=== PATIENT | female | born 1970 | race Caucasian/White ===

== ENCOUNTER → 2017-02-10 | Outpatient (CLI) | payer BC ==
[~2017-02-10] MED LIST: ACET-1311 PO; CALC-51 PO; CHOL20009 PO; DIPH-437 PO; IBUP-103 PO; IBUP-1050 PO; LISI10TA PO; METR0.7527 TOP; METR1GEL3; MULT-513 PO; OMEG10007 PO; PRENTAB26 PO
== END | disposition home or self-care (01) ==
LOC: C.PAPS 14:41
PROVIDERS: ATTEND Physician Assistant
DX: Z01.419 Encounter for gynecological examination (general) (routine) without abnormal findings (principal)

== ENCOUNTER 2017-07-30 15:59 | Emergency (ER) | payer BC ==
[~2017-07-30] VITALS: Ht 160 cm; Wt 122.7 kg
[~2017-07-30 15:59] MED LIST changes: -CALC-51 PO; -CHOL20009 PO; -DIPH-437 PO; -IBUP-103 PO; -LISI10TA PO; -METR0.7527 TOP; -MULT-513 PO
[2017-07-30 16:02] VITALS: TEMP 37.4; Ht 160 cm; Wt 122.7 kg
[2017-07-30] MEDS ORDERED: SODIUM CHLORIDE 0.9% 500ML 500 ML IV STA (16:49)
--- NOTE | 2017-07-30 17:03 | DIAGNOSTIC IMAGING REPORT ---
CHEST ONE VIEW PORTABLE CLINICAL HISTORY: Atypical chest pain. Hypertension. COMPARISON STUDY: No previous studies for comparison. FINDINGS: The heart is at the upper limits of normal in size. There is no failure. There is no focal pulmonary consolidation. There are no pleural effusions.[ IMPRESSION: No active disease in the chest. Electronically signed by: Bk Garcia M.D. 07/30/2017 5:02 PM Dictated Date/Time: 07/30/2017 5:02 PM
[2017-07-30] MEDS ORDERED: DIPH-437 PO (17:14)
[2017-07-30] MEDS ORDERED: CHOL20009 PO (17:17)
[2017-07-30] MEDS ORDERED: IBUP-103 PO (17:17)
[2017-07-30] MEDS ORDERED: CALC-51 PO (17:17)
[2017-07-30] MEDS ORDERED: METR0.7527 TOP (17:17)
[2017-07-30] MEDS ORDERED: MULT-513 PO (17:17)
[2017-07-30 17:36] LABS: BASO % 0.4 %; BASO ABS # 0.04 K/uL (0-0.2); COMPLETE YES; EOS % 1.9 %; HEMATOCRIT 39.1 % (37-47); IG% 0.3 %; LYMPH % 19.7 %; LYMPH ABS # 1.93 K/uL (1.2-3.4); MEAN CELL VOLUME 79.8 fL (80-100); MEAN CORPUSCULAR HEMOGLOBIN 26.3 pg (25-34); MEAN PLATELET VOLUME 10.8 fL (7.4-10.4); MONO % 6.6 %; NEUT % 71.1 %; PLATELET COUNT 267 K/uL (130-400)
[2017-07-30 17:56] LABS: BLOOD UREA NITROGEN 15 mg/dl (7-18); BUN/CREATININE RATIO 20.1 (10-20); CALCIUM 9.1 mg/dl (8.5-10.1); CARBON DIOXIDE 24 mmol/L (21-32); CHLORIDE 106 mmol/L (98-107); CREATININE 0.76 mg/dl (0.60-1.20); GLUCOSE 162 mg/dl (70-99); POTASSIUM 3.9 mmol/L (3.5-5.1); SODIUM 138 mmol/L (136-145)
[2017-07-30 18:49] LABS: URINE APPEARANCE CLEAR (CLEAR); URINE BILIRUBIN NEG (NEG); URINE COLOR YELLOW; URINE EPITHELIAL CELL AUTO >30 /lpf (0-5); URINE NITRITE NEG (NEG); UROBILINOGEN NEG (NEG)
[2017-07-30 18:50] LABS: MANUAL MICROSCOPIC REQUIRED? NO; REVIEW REQ? NO
[2017-07-30] MEDS ORDERED: LISINOPRIL 20 MG TAB PO SCH (20:45)
[2017-07-30 22:59] VITALS: BP 211/108; PULSE 73; O2SAT 98
[2017-07-30] MEDS ORDERED: LISI10TA PO ×2 (23:01→23:14)
--- NOTE | 2017-07-30 23:21 | EMERGENCY ROOM VISIT NOTE ---
History Report prepared by Sergio: Cris Ivy Under the Supervision of: Dr. Chuckie Carias D.O. First contact with patient: 16:39 Chief Complaint: HYPERTENSION Stated Complaint: 2 DAYS AGO AFTER ORAL SURGERY, BP WAS 204/114 History of Present Illness The patient is a 47 year old female who presents to the Emergency Room with complaints of constant hypertension beginning ORDER ADMINISTRATOR. The patient had a consult with her oral surgeon 2 days ago and they checked her blood pressure in the office. Her BP was 204/114 at that time. They advised her to call her PCP to follow-up. The patient called her PCP today and was told to come to the ED for further evaluation. She is not currently on any medications for her blood pressure. She has been experiencing some tightness in her throat when she swallows while eating very quickly. If she is not eating or drinking she does not get this. Also if she does not eat and drink at a quick rate she does not get this. Pt denies headache, change in vision, fevers, chest pain, shortness of breath, nausea, vomiting, diarrhea, pain with urination, and melena. No weakness or numbness in arms or legs. Denies any history of high blood pressure , high cholesterol or previous heart disease. Source of History: patient Onset: ORDER ADMINISTRATOR Position: other (global) Symptom Intensity: BP 204/114 Quality: other (hypertension) Timing: constant Associated Symptoms: No fevers, No headache, No chest pain, No SOB, No nausea, No vomiting, No melena, No diarrhea, No urinary symptoms Review of Systems See HPI for pertinent positives & negatives. A total of 10 systems reviewed and were otherwise negative. Past Medical & Surgical Medical Problems: (1) Gestational diabetes (2) UTI (urinary tract infection) Family History Cancer Diabetes mellitus FH: cancer FH: gallbladder disease Heart disease Hypertension Seizures Social History Smokeless Tobacco Use: No Alcohol Use: occasionally Drug Use: none Marital Status: Housing Status: lives with family Occupation Status: employed Current/Historical Medications Scheduled Calcium Carbonate-Vitamin D (Calcium), 1 TAB PO DAILY Cholecalciferol (Vitamin D), 2,000 UNITS PO DAILY Lisinopril (Prinivil), 20 MG PO DAILY Lisinopril (Prinivil), 20 MG PO DAILY Metronidazole (Topical) (Metrogel), 1 APPLN TOP PRN UD Multivitamins/Minerals (Mvi With Minerals), 1 TAB PO DAILY Scheduled PRN Acetaminophen/Diphenhydramine (Tylenol Pm), 2 TAB PO HS PRN for Sleep Ibuprofen Tab (Advil), 600-800 MG PO Q6H PRN for Headache or Pain Allergies Coded Allergies: Tuberculin Purified Protein Derivat (Verified Allergy, Unknown, 11/09/09) Tetanus Immune Globulin (Verified Adverse Reaction, Intermediate, RED, SORE AND HARD AT SITE PER PT, 11/09/09) Physical Exam Vital Signs Date Time Temp Pulse Resp B/P (MAP) Pulse Ox O2 Delivery O2 Flow Rate FiO2 07/30/17 22:59 73 18 211/108 98 Room Air 07/30/17 21:20 75 18 194/112 98 07/30/17 19:06 190/100 07/30/17 18:36 200/111 07/30/17 18:15 214/104 07/30/17 17:51 72 19 228/117 98 Room Air 07/30/17 16:02 37.4 91 17 204/126 98 Room Air Physical Exam GENERAL: Sitting up in bed, disheveled, alert, well appearing, well nourished, no distress, non-toxic EYE EXAM: normal conjunctiva. PERRLA OROPHARYNX: no exudate, no erythema, lips, buccal mucosa, and tongue normal and mucous membranes are moist NECK: supple, no nuchal rigidity, no adenopathy, non-tender LUNGS: Clear to auscultation. Normal chest wall mechanics HEART: no murmurs, S1 normal and S2 normal ABDOMEN: abdomen soft, non-tender, normo-active bowel sounds, no masses, no rebound or guarding. BACK: Back is symmetrical on inspection and there is no deformity, no midline tenderness, no CVA tenderness. SKIN: no rashes and no bruising UPPER EXTREMITIES: upper extremities are grossly normal. LOWER EXTREMITIES: No pitting edema. NEURO EXAM: Normal sensorium, cranial nerves II-XII intact, normal speech, no weakness of arms, no weakness of legs. Medical Decision & Procedures ER Provider Diagnostic Interpretation: Radiology results as stated below per my review and the radiologist's interpretation: CHEST ONE VIEW PORTABLE CLINICAL HISTORY: Atypical chest pain. Hypertension. COMPARISON STUDY: No previous studies for comparison. FINDINGS: The heart is at the upper limits of normal in size. There is no failure. There is no focal pulmonary consolidation. There are no pleural effusions.[ IMPRESSION: No active disease in the chest. Electronically signed by: Bk Garcia M.D. 07/30/2017 5:02 PM Dictated Date/Time: 07/30/2017 5:02 PM Laboratory Results 07/30/17 17:20 Red Blood Count 4.90, Mean Corpuscular Volume 79.8, Mean Corpuscular Hemoglobin 26.3, Mean Corpuscular Hemoglobin Concent 33.0, Mean Platelet Volume 10.8, Neutrophils (%) (Auto) 71.1, Lymphocytes (%) (Auto) 19.7, Monocytes (%) (Auto) 6.6, Eosinophils (%) (Auto) 1.9, Basophils (%) (Auto) 0.4, Neutrophils # (Auto) 6.96, Lymphocytes # (Auto) 1.93, Monocytes # (Auto) 0.65, Eosinophils # (Auto) 0.19, Basophils # (Auto) 0.04 07/30/17 17:20 Test 07/30/17 17:20 07/30/17 18:40 07/30/17 20:56 White Blood Count 9.80 K/uL (4.8-10.8) Red Blood Count 4.90 M/uL (4.2-5.4) Hemoglobin 12.9 g/dL (12.0-16.0) Hematocrit 39.1 % (37-47) Mean Corpuscular Volume 79.8 fL (80-100) Mean Corpuscular Hemoglobin 26.3 pg (25-34) Mean Corpuscular Hemoglobin Concent 33.0 g/dl (32-36) Platelet Count 267 K/uL (130-400) Mean Platelet Volume 10.8 fL (7.4-10.4) Neutrophils (%) (Auto) 71.1 % Lymphocytes (%) (Auto) 19.7 % Monocytes (%) (Auto) 6.6 % Eosinophils (%) (Auto) 1.9 % Basophils (%) (Auto) 0.4 % Neutrophils # (Auto) 6.96 K/uL (1.4-6.5) Lymphocytes # (Auto) 1.93 K/uL (1.2-3.4) Monocytes # (Auto) 0.65 K/uL (0.11-0.59) Eosinophils # (Auto) 0.19 K/uL (0-0.5) Basophils # (Auto) 0.04 K/uL (0-0.2) RDW Standard Deviation 41.9 fL (36.4-46.3) RDW Coefficient of Variation 14.5 % (11.5-14.5) Immature Granulocyte % (Auto) 0.3 % Immature Granulocyte # (Auto) 0.03 K/uL (0.00-0.02) Anion Gap 8.0 mmol/L (3-11) Est Creatinine Clear Calc Drug Dose 113.8 ml/min Estimated GFR () 106.8 Estimated GFR (Non- 92.1 BUN/Creatinine Ratio 20.1 (10-20) Calcium Level 9.1 mg/dl (8.5-10.1) Urine Color YELLOW Urine Appearance CLEAR (CLEAR) Urine pH 6.0 (4.5-7.5) Urine Specific [place] 1.020 (1.000-1.030) Urine Protein 1+ (NEG) Urine Glucose (UA) 2+ (NEG) Urine Ketones NEG (NEG) Urine Occult Blood 2+ (NEG) Urine Nitrite NEG (NEG) Urine Bilirubin NEG (NEG) Urine Urobilinogen NEG (NEG) Urine Leukocyte Esterase NEG (NEG) Urine WBC (Auto) 1-5 /hpf (0-5) Urine RBC (Auto) 5-10 /hpf (0-4) Urine Hyaline Casts (Auto) 0 /lpf (0-5) Urine Epithelial Cells (Auto) >30 /lpf (0-5) Urine Bacteria (Auto) 1+ (NEG) Troponin I < 0.015 ng/ml (0-0.045) Laboratory results per my review. Medications Administered Medications (Trade) Dose Ordered Sig/Velma Route Start Time Stop Time Status Last Admin Dose Admin Lisinopril (Zestril Tab) 20 mg NOW PO 07/30/17 20:45 08/29/17 20:44 07/30/17 22:09 20 MG ECG Indication: other (HTN) Rate (beats per minute): 85 Rhythm: normal sinus Findings: Q waves (inferior and septal), left axis deviation Comparison ECG Date: no prior available ED Course ED COURSE: Vital signs were reviewed and showed hypertensive. The patients medical record was reviewed The above diagnostic studies were performed and reviewed. ED treatments and interventions as stated above. 1639: The patient was evaluated in room A2. A complete history and physical examination was performed. 1648: NSS 500 ml @ 999 mls/hr IV 2044: Lisinopril 20 mg PO 2147: I updated the patient and she is doing well. 2301: Upon reevaluation, the patient is resting comfortably. I discussed my findings with the patient and she understands and agrees with the treatment plan. Based on the patients age, coexisting illnesses, exam and lab findings the decision to treat as an outpatient was made. The patient remained stable while under my care. The patient appeared well at the time of discharge. Medical Decision Differential diagnoses includes but is not limited to acute coronary syndrome, myocardial infarction, pericarditis, pulmonary embolus, aortic dissection, pneumonia, pneumothorax, musculoskeletal, shingles, esophageal. Patient is a 47-year-old female who presents to the ER referred in by her primary care doctor for hypertension. Systolic pressures have been in the 200s at home. She has no complaints. He only thing that she can think of is over the past couple days when she eats rapidly she feels to getting stuck in her esophagus feels tight. This only occurs with eating at a rapid pace. Otherwise she has no chest pain or shortness of breath. No weakness or numbness in arms and legs. No headache or change in vision. She is completely symptomatic. Patient is neurologically intact. EKG shows show Q waves. Troponins were negative 2 with an adjacent to the patient. This is hypertensive urgency and she will be treated as an outpatient. I did start her on lisinopril 20 mg follow d/w IM attending. Stressed importance of following up with PCP in one week. Stressed the importance of refraining from any sexual activity as lisinopril is very teratogenic. Systolic blood pressures trended from the 180s to 210. With her being asystematic she was discharged to follow- up with PCP in 1 week. Discussed with Pt concerning signs and symptoms to watch out for. Pt was instructed to follow up with their PCP and discussed with the patient their option to return to the ED at anytime for persistent or worsening symptoms. The appropriate anticipatory guidance and out-patient management, including indications for return to the emergency department, were explained at length to the patient and understood. Medication Reconcilliation Current Medication List: was personally reviewed by me Blood Pressure Screening Patient's blood pressure: Elevated blood pressure Blood pressure disposition: Referred to PCP Impression Primary Impression: Hypertension Scribe Attestation The scribe's documentation has been prepared under my direction and personally reviewed by me in its entirety. I confirm that the note above accurately reflects all work, treatment, procedures, and medical decision making performed by me. Departure Information Dispostion Home / Self-Care Prescriptions Lisinopril (Prinivil) 10 Mg Tab 20 MG PO DAILY, #20 TAB Prov: Chuckie Carias, DO 07/30/17 Lisinopril (Prinivil) 10 Mg Tab 20 MG PO DAILY, #20 TAB Prov: Chuckie Carias, DO 07/30/17 Referrals Sanket Rodgers M.D.([facility]) (PCP) Forms HOME CARE DOCUMENTATION FORM, IMPORTANT VISIT INFORMATION, WORK / SCHOOL INSTRUCTIONS Patient Instructions Hypertension Control, My [facility] Additional Instructions Please follow up with your primary care doctor with in the next 24 hours. Any worsening of your symptoms, please return to the ED immediately. This includes any fevers greater than 100.4, worsening pain, chest pain, shortness breath, persistent nausea, vomiting, unable to eat or drink, or any other concerning signs or symptoms from your standpoint. You were found to have a blood pressure greater than 120 systolic over 90 diastolic. Due to the new Medicare guidelines, we are now recommending that you follow up with your primary care doctor in regards to this elevated blood pressure. Please take lisinopril as prescribed. Please refrain from any sexual intercourse until you follow up with your primary care doctor as this is very teratogenic. You must follow up with one primary care doctor within 1 week. Problem Qualifiers Primary Impression: Hypertension Hypertension type: unspecified Qualified Codes: I10 - Essential (primary) hypertension
== END 2017-07-30 23:15 | disposition home or self-care (01) ==
LOC: C.EDB 16:05 → C.EDA 23:15
DX: I10 Essential (primary) hypertension (principal); Z87.440 Personal history of urinary (tract) infections; Z80.9 Family history of malignant neoplasm, unspecified; Z83.3 Family history of diabetes mellitus; Z82.49 Family history of ischemic heart disease and other diseases of the circulatory system

== ENCOUNTER 2020-05-19 20:42 | Observation (INO) ==
[2020-05-19 21:28] LABS: Basophils # (auto) 0.03 K/uL (0-0.2); Basophils % (auto) 0.2 %; Eosinophils # (auto) 0.25 K/uL (0-0.5); Hematocrit (blood only) 41.1 % (37-47); Immature Granulocytes # (auto) 0.03 K/uL (0.00-0.02); Immature Granulocytes % (auto) 0.2 %; Lymphocytes # (auto) 2.83 K/uL (1.2-3.4); Lymphocytes % (auto) 22.6 %; Mean Corpuscular Hemoglobin 28.9 pg (25-34); Mean Corpuscular Hgb Conc 34.1 g/dL (32-36); Mean Corpuscular Volume 84.9 fL (80-100); Mean Platelet Volume 10.6 fL (7.4-10.4); Monocytes % (auto) 5.6 %; Neutrophils # (auto) 8.68 K/uL (1.4-6.5); Neutrophils % (auto) 69.4 %; Platelet Count 305 K/uL (130-400); RDW Standard Deviation 43.9 fL (36.4-46.3); Red Blood Count 4.84 M/uL (4.2-5.4); White Blood Count 12.52 K/uL (4.8-10.8)
[2020-05-19 21:43] LABS: D Dimer 320 ug/L FEU (0-500); Partial Thromboplastin Ratio 0.9; Partial Thromboplastin Time 24.1 Seconds (21.0-31.0); Prothrombin Time 10.3 Seconds (9.0-12.0)
[2020-05-19] MEDS ORDERED: NITROGLYCERIN SL 0.4 MG/TAB TAB SL STA (21:55)
[2020-05-19 22:15] LABS: Alanine Aminotransferase 34 U/L (12-78); Albumin Level 3.4 gm/dl (3.4-5.0); Blood Urea Nitrogen 17 mg/dl (7-18); Calcium 8.9 mg/dl (8.5-10.1); Carbon Dioxide 22 mmol/L (21-32); Chloride 107 mmol/L (98-107); Creatinine Clr Calc Pharmacy 90.6 ml/min; Est GFR (African American) 88.8; Est GFR (Non-African American) 76.6; Glucose 118 mg/dl (70-99); Lipase 513 U/L (73-393); Potassium 3.6 mmol/L (3.5-5.1); Sodium 141 mmol/L (136-145)
[2020-05-19] MEDS ORDERED: NITROGLYCERIN 2% OINTMENT 30GM TUBE EXT SCH (22:15)
[2020-05-19 22:21] LABS: Albumin Globulin Ratio 0.8 (0.9-2); Alkaline Phosphatase 115 U/L (45-117); Aspartate Aminotransferase 24 U/L (15-37); Bilirubin,Total 0.3 mg/dl (0.2-1); Creatine Kinase 83 U/L (26-192); Creatine Kinase MB < 1.0 ng/ml (0.5-3.6); Globulin 4.4 gm/dl (2.5-4.0); Total Protein 7.8 gm/dl (6.4-8.2); Troponin I < 0.015 ng/ml (0-0.045)
[2020-05-19] MEDS ORDERED: IOVERSOL 100ml IV ONE (22:47)
[2020-05-20 01:11] LABS: Magnesium 1.8 mg/dl (1.8-2.4)
--- NOTE | 2020-05-20 01:25 | History & Physical Report ---
Date of Service May 20, 2020 Assessment & Plan (1) Chest pain: Relieved by nitroglycerin Rule out ACS given risk factors hypertension, stable hyperlipidemia, on statin Rx DM 2 on oral medications, reasonable control as of recent outpatient hemoglobin A1c of 7.07 April 2020 MARTIN (currently CPAP noncompliant due to frequent respiratory tract infections from last year) OBS PCU Aspirin for CAD prevention until ACS ruled out Follow troponin TTE, Cardiology consult RE chest pain relieved by nitro Check lipid profile Basal insulin, ISS BG goal [id number], carb count coverage Patient counseled about importance of compliance with CPAP and need to reconnect with sleep medicine upon discharge. DVT prophylaxis per Lovenox subcu Full code Text document was generated using [employer] voice recognition software. It may contain grammatical or spelling errors. Kindly contact undersigned for clarification of any documentation item in question. History of Present Illness Chief Complaint: Left-sided chest pain Primary Care Provider: Sanket Rodgers MD History obtained from patient and records. Medical history significant for hypertension, hyperlipidemia, DM 2 on oral medications, history of PCOS, MARTIN (currently CPAP noncompliant.) Yesterday afternoon patient was just walking around when she experienced intermittent left-sided chest pressure without radiation or cough or shortness of breath or diaphoresis symptoms. Different from heartburn. No prior episodes. Some stresses at home. Chest discomfort relieved by Nitropaste at the ER. Medical History as above Surgical History : Knee surgeries Family History : Diabetes, heart disease, stroke Personal/Social history : Non-smoker, no EtOH intake, supervisory it specialist Allergies Allergy/AdvReac Type Severity Reaction Status Date / Time tuberculin, purified protein Allergy Unknown Unknown Verified 05/19/20 21:33 deriva acetaminophen [From Vicodin] Allergy Unknown Verified 05/19/20 21:33 hydrocodone [From Vicodin] Allergy Unknown Verified 05/19/20 21:33 tetanus immune globulin AdvReac Intermediate RED, SORE Verified 05/19/20 21:33 AND HARD AT SITE PER PT lisinopril AdvReac Unknown Chest Verified 05/19/20 21:33 tightness and headache Home Medications Home Medications Medication Instructions Recorded Confirmed Type acetaminophen [Tylenol Extra 100 mg PO DIRECTED PRN 11/29/18 05/19/20 History Strength] albuterol sulfate [ProAir HFA] 2 puff INHALATION DIRECTED PRN 11/29/18 05/19/20 History amlodipine 10 mg PO DAILY 11/29/18 05/19/20 History calcium carbonate-vitamin D3 1 tab PO DAILY 11/29/18 05/19/20 History [Calcium 600 + D(3)] chlorthalidone 25 mg PO DAILY 11/29/18 05/19/20 History cholecalciferol (vitamin D3) 2,000 units PO DAILY 11/29/18 05/19/20 History [Vitamin D3] metformin 1,000 mg PO BID 11/29/18 05/19/20 History metoprolol succinate 50 mg PO DAILY 11/29/18 05/19/20 History multivitamin 1 tab PO DAILY 11/29/18 05/19/20 History atorvastatin 40 mg tablet 40 mg PO DAILY 02/21/20 05/19/20 History empagliflozin [Jardiance] 25 mg PO CQWK 05/19/20 05/19/20 History hydroxyzine HCl 25 - 50 mg PO TID PRN 05/19/20 05/19/20 History sertraline [Zoloft] 50 mg PO DAILY 05/19/20 05/19/20 History Past Med/Surg History Medical History (Updated 05/20/20 @ 01:51 by Scotty Hawkins MD) Abnormal uterine bleeding (AUB) Depression Diabetes Gestational diabetes High blood pressure Migraine headache Pelvic pain UTI (urinary tract infection) Surgical History (Updated 02/21/20 @ 12:07 by Brittanie Patel MD, FACOG) History of dilation and curettage S/P ACL repair x2, left, 1992. 1993 S/P left knee arthroscopy S/P wisdom tooth extraction Family History (Updated 02/21/20 @ 12:09 by Brittanie Patel MD, FACOG) Family/Other Colorectal cancer maternal ggm Coronary heart disease Diabetes Hypertension Osteoporosis Mother Coronary heart disease Diabetes Hypertension Osteoporosis Daughter Anxiety Depression Eating disorder Sister Hypertension Depression Anxiety Other Dyslipidemia Pulmonary embolism Denies family history of Ovarian cancer Breast cancer Social History (Updated 02/21/20 @ 12:09 by Brittanie Patel MD, FACOG) Smoking Status: Never smoker Hx Alcohol Use: No Hx Substance Use: No Preferred Language: Belarusian Feels Safe at Home: Yes Review of Systems Review of Systems: As per HPI, all 10 systems reviewed, all other ROS negative Physical Exam Physical Exam: GENERAL: Comfortable, pleasant, obese, no respiratory distress SKIN: Normal color, warm HEENT: [place] palpebral conjunctivae, no ptosis, moist buccal mucosa NECK : Supple, short neck, no tenderness CHEST : CTA, no tenderness HEART : RRR, no obvious murmurs ABDOMEN: Some distention, nontender EXTREMITIES : Chronic bilateral LE swelling, no LE tenderness, no other conspicuous deformities noted NEUROLOGIC : Coherent, no facial asymmetry, no other gross focality Results & Data Results & Data ([facility]) Vital Signs (Past 12 Hours) Vital Signs Temp Pulse Resp BP Pulse Ox 05/20/20 00:30 65 21 96 05/20/20 00:00 75 16 93 05/19/20 23:30 65 13 95 05/19/20 23:00 62 20 94 05/19/20 22:30 79 20 96 05/19/20 21:48 62 17 123/69 98 05/19/20 20:50 36.6 C 67 20 134/79 99 Laboratory Results Laboratory Results WBC 12.52 K/uL (4.8-10.8) H 05/19/20 21:18 RBC 4.84 M/uL (4.2-5.4) 05/19/20 21:18 Hgb 14.0 g/dL (12.0-16.0) 05/19/20 21:18 Hct 41.1 % (37-47) 05/19/20 21:18 MCV 84.9 fL (80-100) 05/19/20 21:18 MCH 28.9 pg (25-34) 05/19/20 21:18 MCHC 34.1 g/dL (32-36) 05/19/20 21:18 RDW Std Deviation 43.9 fL (36.4-46.3) 05/19/20 21:18 RDW Coeff of Ruel 14.0 % (11.5-14.5) 05/19/20 21:18 Plt Count 305 K/uL (130-400) 05/19/20 21:18 MPV 10.6 fL (7.4-10.4) H 05/19/20 21:18 Immature Gran % (Auto) 0.2 % 05/19/20 21:18 Neut % (Auto) 69.4 % 05/19/20 21:18 Lymph % (Auto) 22.6 % 05/19/20 21:18 [place] % (Auto) 5.6 % 05/19/20 21:18 Eos % (Auto) 2.0 % 05/19/20 21:18 Baso % (Auto) 0.2 % 05/19/20 21:18 Neut # (Auto) 8.68 K/uL (1.4-6.5) H 05/19/20 21:18 Lymph # (Auto) 2.83 K/uL (1.2-3.4) 05/19/20 21:18 [place] # (Auto) 0.70 K/uL (0.11-0.59) H 05/19/20 21:18 Eos # (Auto) 0.25 K/uL (0-0.5) 05/19/20 21:18 Baso # (Auto) 0.03 K/uL (0-0.2) 05/19/20 21:18 Immature Gran # (Auto) 0.03 K/uL (0.00-0.02) H 05/19/20 21:18 PT 10.3 Seconds (9.0-12.0) 05/19/20 21:18 INR 1.0 (0.9-1.1) 05/19/20 21:18 APTT 24.1 Seconds (21.0-31.0) 05/19/20:18 PTT Ratio 0.9 05/19/20 21:18 D-Dimer 320 ug/L FEU (0-500) 05/19/20 21:18 Sodium 141 mmol/L (136-145) 05/19/20 21:18 Potassium 3.6 mmol/L (3.5-5.1) 05/19/20 21:18 Chloride 107 mmol/L (98-107) 05/19/20 21:18 Carbon Dioxide 22 mmol/L (21-32) 05/19/20 21:18 Anion Gap 12.0 (3-11) H 05/19/20 21:18 BUN 17 mg/dl (7-18) 05/19/20 21:18 Creatinine 0.87 mg/dl (0.6-1.2) 05/19/20 21:18 Est Cr Clr Drug Dosing 90.6 ml/min 05/19/20 21:18 Est GFR ( Amer) 88.8 05/19/20 21:18 Est GFR (Non-Af Amer) 76.6 05/19/20 21:18 BUN/Creatinine Ratio 19.0 (10-20) 05/19/20 21:18 Glucose 118 mg/dl (70-99) H 05/19/20 21:18 Calcium 8.9 mg/dl (8.5-10.1) 05/19/20 21:18 Magnesium 1.8 mg/dl (1.8-2.4) 05/19/20 21:18 Total Bilirubin 0.3 mg/dl (0.2-1) 05/19/20 21:18 AST 24 U/L (15-37) 05/19/20 21:18 ALT 34 U/L (12-78) 05/19/20 21:18 Alkaline Phosphatase 115 U/L (45-117) 05/19/20 21:18 Total Creatine Kinase 83 U/L (26-192) 05/19/20 21:18 CK-MB (CK-2) < 1.0 ng/ml (0.5-3.6) 05/19/20 21:18 CK/CKMB % Calc TNP 05/19/20 21:18 Troponin I < 0.015 ng/ml (0-0.045) 05/20/20 00:05 Total Protein 7.8 gm/dl (6.4-8.2) 05/19/20 21:18 Albumin 3.4 gm/dl (3.4-5.0) 05/19/20 21:18 Globulin 4.4 gm/dl (2.5-4.0) H 05/19/20 21:18 Albumin/Globulin Ratio 0.8 (0.9-2) L 05/19/20 21:18 Lipase 513 U/L (73-393) H 05/19/20 21:18 Diagnostic Findings Chest x-ray as per my interpretation elevated right hemidiaphragm, no infiltrate CT abdomen pelvis initial read fluid with nondistended loops of small bowel possible enteritis. No appendicitis. EKG as per my interpretation : Rate 60, NSR, normal axis, no ischemia
[2020-05-20] MEDS ORDERED: ASPIRIN CHEW 324 MG ONE (01:28)
[2020-05-20] MEDS ORDERED: ASPIRIN CHEW 324 MG PO STA (01:28)
[2020-05-20] MEDS ORDERED: PROMETHAZINE HCL 12.5 MG in SODIUM CHLORIDE 0.9% 50 ML IV PRN (02:04)
[2020-05-20] MEDS ORDERED: TRAMADOL HCL 50 MG TABLET PO PRN (02:04)
[2020-05-20] MEDS ORDERED: LORazepam 0.5 MG/1 ML VIAL IV PRN (02:04)
[2020-05-20] MEDS ORDERED: MoRPHine SULFATE 4 MG/ML 1 ML CARP\\VIAL IV PRN (02:04)
[2020-05-20] MEDS ORDERED: DEXTROSE 50% 50 ML SYRINGE IV PRN (02:04)
[2020-05-20] MEDS ORDERED: CARBOHYDRATES FOR HYPOGLYCEMIA PO PRN (02:04)
[2020-05-20] MEDS ORDERED: GLUCOSE 10 TABS/TUBE PO PRN (02:04)
[2020-05-20] MEDS ORDERED: LACTATED RINGER'S 1,000 ML IV ONE (02:04)
[2020-05-20] MEDS ORDERED: GLUCAGON FOR INJ 1 MG VIAL SQ PRN (02:04)
[2020-05-20] MEDS ORDERED: NITROGLYCERIN SL 0.4 MG/TAB TAB SL PRN (02:04)
[2020-05-20] MEDS ORDERED: GLUCOSE 40% GEL 15 GM TUBE PO PRN (02:04)
[2020-05-20] MEDS ORDERED: ACETAMINOPHEN 325 MG TAB PO PRN (02:04)
[2020-05-20] MEDS: INSULIN ASPART 100 UNITS/ML 3 ML PEN SC SCH ×3 (02:44→12:27)
[2020-05-20] MEDS ORDERED: AMLODIPINE BESYLATE 5 MG TAB PO SCH ×2 (03:35→09:00)
[2020-05-20 06:36] LABS: Basophils # (auto) 0.04 K/uL (0-0.2); Basophils % (auto) 0.4 %; Eosinophils # (auto) 0.28 K/uL (0-0.5); Eosinophils % (auto) 2.7 %; Hematocrit (blood only) 38.5 % (37-47); Hemoglobin 12.5 g/dL (12.0-16.0); Immature Granulocytes # (auto) 0.02 K/uL (0.00-0.02); Immature Granulocytes % (auto) 0.2 %; Lymphocytes # (auto) 2.78 K/uL (1.2-3.4); Lymphocytes % (auto) 26.5 %; Mean Corpuscular Hemoglobin 27.5 pg (25-34); Mean Corpuscular Hgb Conc 32.5 g/dL (32-36); Mean Corpuscular Volume 84.6 fL (80-100); Mean Platelet Volume 10.4 fL (7.4-10.4); Monocytes # (auto) 0.61 K/uL (0.11-0.59); Monocytes % (auto) 5.8 %; Neutrophils # (auto) 6.78 K/uL (1.4-6.5); Neutrophils % (auto) 64.4 %; Platelet Count 280 K/uL (130-400); RDW Coefficient of Variation 14.1 % (11.5-14.5); Red Blood Count 4.55 M/uL (4.2-5.4); White Blood Count 10.51 K/uL (4.8-10.8)
[2020-05-20 06:44] LABS: Partial Thromboplastin Ratio 0.9; Partial Thromboplastin Time 24.2 Seconds (21.0-31.0)
[2020-05-20 07:08] LABS: BUN Creatinine Ratio 20.7 (10-20); Blood Urea Nitrogen 14 mg/dl (7-18); Calcium 8.6 mg/dl (8.5-10.1); Carbon Dioxide 25 mmol/L (21-32); Chloride 109 mmol/L (98-107); Creatinine Clr Calc Pharmacy 121.1 ml/min; Est GFR (African American) 117.1; Est GFR (Non-African American) 101.1; Glucose 99 mg/dl (70-99); Lipase 330 U/L (73-393); Potassium 3.6 mmol/L (3.5-5.1); Sodium 141 mmol/L (136-145)
[2020-05-20 07:13] LABS: Chol HDL Ratio 3; Cholesterol 109 mg/dl (0-200); HDL Cholesterol 43 mg/dl; LDL Cholesterol Calculated 40 mg/dl; Triglycerides 130 mg/dl (0-150); Troponin I < 0.015 ng/ml (0-0.045); VLDL Cholesterol 26 mg/dl
--- NOTE | 2020-05-20 07:47 | CT Scan Report ---
CT abd pelvis IV con only CLINICAL HISTORY: Epigastric pain. Elevated lipase COMPARISON STUDY: None. TECHNIQUE: Patient was scanned in a dynamic helical fashion during intravenous administration of 94 c c of Optiray 320 A dose lowering technique was utilized adhering to the principles of ALARA. CT DOSE: 1544.99 mGy.cm FINDINGS: Lower chest: The heart is normal in size and configuration, without pericardial effusion. The lung ba ses and pleural spaces are clear. Liver: The contrast-enhanced liver is normal in size, contour, and attenuation. There is no intrahepa tic biliary ductal dilatation. The hepatic veins and portal veins are patent. Gallbladder: Contracted Spleen: Normal in size and attenuation. Pancreas: Unremarkable. Adrenal glands: Unremarkable. Kidneys: There are bilateral hypodense renal lesions, statistically representing cysts. There is no h ydronephrosis Bowel: There are no transition zones indicate bowel obstruction. There is no evidence of acute divert iculitis. The appendix appears normal. There are scattered colonic air-fluid levels. Peritoneum: There is no intraperitoneal free air or abdominal ascites. Vasculature: The abdominal aorta is normal in course and caliber. Adenopathy: None. Pelvic viscera: The uterus appears bulbous. Adenomyosis cannot be excluded. Skeletal structures: No destructive osseous lesions are seen. IMPRESSION: 1. No evidence of bowel obstruction. No evidence of free air 2. Normal appendix. No evidence of acute diverticulitis 3. Fluid within the stomach and colon. This can be seen in gastroenteritis, but also can be normal. 4. Bulbous uterus 5. No CT evidence of pancreatitis ACT 112: Negative or not required by law. Electronically signed by: Bk Garcia M.D. 05/20/2020 7:46 AM
--- NOTE | 2020-05-20 08:23 | XRay Report ---
XR chest 1V portable CLINICAL HISTORY: Atypical chest pain COMPARISON STUDY: 07/30/2017 FINDINGS: The cardiac and mediastinal contours are normal. There is no evidence of focal pulmonary co nsolidation. There is no evidence of failure. No pleural effusions are visualized.[No pneumothorax is visualized. IMPRESSION: No active disease in the chest. ACT 112: Negative or not required by law. Electronically signed by: Bk Garcia M.D. 05/20/2020 8:22 AM
[2020-05-20] MEDS ORDERED: INSULIN GLARGINE SOLOSTAR 100 UNITS/ML 3 ML PEN SC SCH ×2 (09:00)
[2020-05-20] MEDS ORDERED: METOPROLOL SUCC 25MG EXT REL TAB PO SCH (09:00)
[2020-05-20] MEDS ORDERED: SERTRALINE HCL 50 MG TABLET PO SCH (09:00)
[2020-05-20] MEDS ORDERED: METOPROLOL SUCC 50MG EXT REL TAB PO SCH (09:00)
[2020-05-20] MEDS ORDERED: MULTIVITAMIN TAB PO SCH (09:00)
[2020-05-20] MEDS ORDERED: ENOXAPARIN INJ 40 MG/0.4 ML SYR SQ SCH (09:00)
[2020-05-20] MEDS ORDERED: ATORVASTATIN 40 MG TAB PO SCH (09:00)
--- NOTE | 2020-05-20 10:28 | Cardiology Consultation ---
Date of Consultation May 20, 2020 Assessment & Plan (1) Chest pain: Patient is a 50-year-old female with cardiac vascular risk factors of hypertension, diabetes mellitus and hyperlipidemia on therapy. Patient presents now with symptoms atypical for angina but recurrent over the past 2 days. Cardiac evaluations include negative troponins serially and normal EKGs x3. Echocardiogram demonstrates normal structural heart and no wall motion abnormalities Patient currently comfortable and has had breakfast this morning Would recommend stress echocardiogram to complete evaluation. This may be done as an outpatient patient be continued on aspirin and avoid strenuous activity till study complete History of Present Illness Reason for Consultation: Chest pain Requesting Physician: Dr. Guzman Attending Physician: Sanjeev Guzman MD History of Present Illness Patient is a 50-year-old female with underlying issues which include 1. Hypertension 2. Type 2 diabetes mellitus 3. Hyperlipidemia on appropriate therapy 4. Obstructive sleep apnea Patient presents now noting yesterday having developed a vague mild pressure sensation in the left parasternal region. Symptoms not specifically related to exertion, possibly worse postprandial. No diaphoresis shortness of breath tachypalpitations dizziness or lightheadedness. No fevers chills or cough. No melena medication dysuria hematuria. Appetite and weight have been generally stable per patient. No history rheumatic fever scarlet fever TIA or stroke. No prior history of myocardial infarction angina or congestive heart failure. Brief jab of pain this morning after eating. No problems with ambulation room Symptoms eased on initial presentation in ER after placement of topical nitrates. Allergies Allergy/AdvReac Type Severity Reaction Status Date / Time tuberculin, purified protein Allergy Unknown Unknown Verified 05/19/20 21:33 deriva acetaminophen [From Vicodin] Allergy Unknown Verified 05/19/20 21:33 hydrocodone [From Vicodin] Allergy Unknown Verified 05/19/20 21:33 tetanus immune globulin AdvReac Intermediate RED, SORE Verified 05/19/20 21:33 AND HARD AT SITE PER PT lisinopril AdvReac Unknown Chest Verified 05/19/20 21:33 tightness and headache Home Medications Home Medications Medication Instructions Recorded Confirmed Type acetaminophen [Tylenol Extra 100 mg PO DIRECTED PRN 11/29/18 05/19/20 History Strength] albuterol sulfate [ProAir HFA] 2 puff INHALATION DIRECTED PRN 11/29/18 05/19/20 History amlodipine 10 mg PO DAILY 11/29/18 05/19/20 History calcium carbonate-vitamin D3 1 tab PO DAILY 11/29/18 05/19/20 History [Calcium 600 + D(3)] chlorthalidone 25 mg PO DAILY 11/29/18 05/19/20 History cholecalciferol (vitamin D3) 2,000 units PO DAILY 11/29/18 05/19/20 History [Vitamin D3] metformin 1,000 mg PO BID 11/29/18 05/19/20 History metoprolol succinate 50 mg PO DAILY 11/29/18 05/19/20 History multivitamin 1 tab PO DAILY 11/29/18 05/19/20 History atorvastatin 40 mg tablet 40 mg PO DAILY 02/21/20 05/19/20 History empagliflozin [Jardiance] 25 mg PO CQWK 05/19/20 05/19/20 History hydroxyzine HCl 25 - 50 mg PO TID PRN 05/19/20 05/19/20 History sertraline [Zoloft] 50 mg PO DAILY 05/19/20 05/19/20 History Patient History Medical History Abnormal uterine bleeding (AUB) Depression Diabetes Gestational diabetes High blood pressure Migraine headache Pelvic pain UTI (urinary tract infection) Surgical History History of dilation and curettage S/P ACL repair x2, left, 1992. 1993 S/P left knee arthroscopy S/P wisdom tooth extraction Family History Family/Other Colorectal cancer maternal ggm Coronary heart disease Diabetes Hypertension Osteoporosis Mother Coronary heart disease Diabetes Hypertension Osteoporosis Daughter Anxiety Depression Eating disorder Sister Hypertension Depression Anxiety Other Dyslipidemia Pulmonary embolism Denies family history of Ovarian cancer Breast cancer Social History (Updated 02/21/20 @ 12:09 by Brittanie Patel MD, FACOG) Smoking Status: Never smoker Hx Alcohol Use: No Hx Substance Use: No Preferred Language: Palauan Communication Ability: Effective Beliefs That Will Affect Care: None Current Living Situation: Spouse and Family Other Information That Helps Us Care for You: No Feels Safe at Home: Yes Safety Concerns: Feels Safe At This Time Review of Systems Review of Systems: All systems reviewed & are unremarkable except as noted in HPI & below Physical Exam Constitutional: WD/WN, vitals as above + obese Eyes: PERRL, conjunctivae normal, anicteric sclerae ENMT: external ear and nose normal, oropharynx normal Neck: trachea midline, no thyromegaly Respiratory: normal respiratory effort, lungs clear to auscultation Cardiovascular: Rate/Rhythm: regular rate and regular rhythm Heart Sounds: normal S1 and normal S2; no gallop and no murmur Palpation: normal PMI Vessels: normal carotid upstroke and radial pulses present; no JVD and no carotid bruit Extremities: no edema Chest (Breasts): Additional Comments: No focal tenderness Gastrointestinal (Abdomen): normal bowel sounds, soft, nontender, no hepatosplenomegaly Musculoskeletal: no cyanosis or clubbing, extremities motor strength 5/5 Skin: no rashes, warm and dry Neurologic: PERRL, EOMI, accommodation nl, no face palsy, no dysarthria Psychiatric: A+Ox3, euthymic affect Results & Data ([facility]) Vital Signs (Past 12 Hours) Vital Signs Temp Pulse Pulse Resp BP BP Pulse Ox 05/20/20 09:00 57 L 05/20/20 08:57 05/20/20 08:16 37.1 C 59 L 17 93/60 L 95 05/20/20 04:00 36.9 C 58 L 18 112/70 91 05/20/20 02:05 37.2 C 64 20 144/90 H 98 05/20/20 01:30 78 22 130/65 97 05/20/20 01:00 63 15 113/76 95 05/20/20 00:42 67 15 127/75 98 05/20/20 00:30 65 21 96 05/20/20 00:00 75 16 93 05/19/20 23:30 65 13 95 05/19/20 23:00 62 20 94 05/19/20 22:30 79 20 96 Pulse Ox 05/20/20 09:00 05/20/20 08:57 97 05/20/20 08:16 05/20/20 04:00 05/20/20 02:05 05/20/20 01:30 05/20/20 01:00 05/20/20 00:42 05/20/20 00:30 05/20/20 00:00 05/19/20 23:30 05/19/20 23:00 05/19/20 22:30 Laboratory Results Laboratory Results - last 24 hr 05/19/20 05/19/20 05/19/20 21:18 21:18 21:18 WBC 12.52 H RBC 4.84 Hgb 14.0 Hct 41.1 MCV 84.9 MCH 28.9 MCHC 34.1 RDW Std Deviation 43.9 RDW Coeff of Ruel 14.0 Plt Count 305 MPV 10.6 H Immature Gran % (Auto) 0.2 Neut % (Auto) 69.4 Lymph % (Auto) 22.6 [place] % (Auto) 5.6 Eos % (Auto) 2.0 Baso % (Auto) 0.2 Neut # (Auto) 8.68 H Lymph # (Auto) 2.83 [place] # (Auto) 0.70 H Eos # (Auto) 0.25 Baso # (Auto) 0.03 Immature Gran # (Auto) 0.03 H PT 10.3 INR 1.0 APTT 24.1 PTT Ratio 0.9 D-Dimer 320 Sodium 141 Potassium 3.6 Chloride 107 Carbon Dioxide 22 Anion Gap 12.0 H BUN 17 Creatinine 0.87 Est Cr Clr Drug Dosing 90.6 Est GFR ( Amer) 88.8 Est GFR (Non-Af Amer) 76.6 BUN/Creatinine Ratio 19.0 Glucose 118 H POC Glucose Calcium 8.9 Magnesium 1.8 Total Bilirubin 0.3 AST 24 ALT 34 Alkaline Phosphatase 115 Total Creatine Kinase 83 CK-MB (CK-2) < 1.0 CK/CKMB % Calc TNP Troponin I < 0.015 Total Protein 7.8 Albumin 3.4 Globulin 4.4 H Albumin/Globulin Ratio 0.8 L Triglycerides Cholesterol LDL Cholesterol, Calc VLDL Cholesterol, Calc HDL Cholesterol Cholesterol/HDL Ratio Lipase 513 H 05/20/20 05/20/20 05/20/20 00:05 02:43 05:56 WBC 10.51 RBC 4.55 Hgb 12.5 Hct 38.5 MCV 84.6 MCH 27.5 MCHC 32.5 RDW Std Deviation 44.0 RDW Coeff of Ruel 14.1 Plt Count 280 MPV 10.4 Immature Gran % (Auto) 0.2 Neut % (Auto) 64.4 Lymph % (Auto) 26.5 [place] % (Auto) 5.8 Eos % (Auto) 2.7 Baso % (Auto) 0.4 Neut # (Auto) 6.78 H Lymph # (Auto) 2.78 [place] # (Auto) 0.61 H Eos # (Auto) 0.28 Baso # (Auto) 0.04 Immature Gran # (Auto) 0.02 PT INR APTT PTT Ratio D-Dimer Sodium Potassium Chloride Carbon Dioxide Anion Gap BUN Creatinine Est Cr Clr Drug Dosing Est GFR ( Amer) Est GFR (Non-Af Amer) BUN/Creatinine Ratio Glucose POC Glucose 151 H Calcium Magnesium Total Bilirubin AST ALT Alkaline Phosphatase Total Creatine Kinase CK-MB (CK-2) CK/CKMB % Calc Troponin I < 0.015 Total Protein Albumin Globulin Albumin/Globulin Ratio Triglycerides Cholesterol LDL Cholesterol, Calc VLDL Cholesterol, Calc HDL Cholesterol Cholesterol/HDL Ratio Lipase 05/20/20 05/20/20 05/20/20 05:56 05:56 07:46 WBC RBC Hgb Hct MCV MCH MCHC RDW Std Deviation RDW Coeff of Ruel Plt Count MPV Immature Gran % (Auto) Neut % (Auto) Lymph % (Auto) [place] % (Auto) Eos % (Auto) Baso % (Auto) Neut # (Auto) Lymph # (Auto) [place] # (Auto) Eos # (Auto) Baso # (Auto) Immature Gran # (Auto) PT INR APTT 24.2 PTT Ratio 0.9 D-Dimer Sodium 141 Potassium 3.6 Chloride 109 H Carbon Dioxide 25 Anion Gap 7.0 BUN 14 Creatinine 0.67 Est Cr Clr Drug Dosing 121.1 Est GFR ( Amer) 117.1 Est GFR (Non-Af Amer) 101.1 BUN/Creatinine Ratio 20.7 H Glucose 99 POC Glucose 112 H Calcium 8.6 Magnesium Total Bilirubin AST ALT Alkaline Phosphatase Total Creatine Kinase CK-MB (CK-2) CK/CKMB % Calc Troponin I < 0.015 Total Protein Albumin Globulin Albumin/Globulin Ratio Triglycerides 130 Cholesterol 109 LDL Cholesterol, Calc 40 VLDL Cholesterol, Calc 26 HDL Cholesterol 43 Cholesterol/HDL Ratio 3 Lipase 330 (1) Chest pain Chest pain type: precordial pain Qualified Code(s): R07.2 - Precordial pain
[2020-05-20 11:47] VITALS: PULSE 60; TEMP 98.2; O2SAT 94
--- NOTE | 2020-05-20 13:56 | Hospitalist Progress Note ---
Date of Service May 20, 2020 Assessment & Plan (1) Chest pain: Present on admission with exertional chest pain that relieved by nitroglycerin Troponin x3 negative EKG showed no ischemic changes Cardio on board Echo showed mild concentric left ventricular hypertrophy. Left ventricular systolic function is normal. Left ventricular wall motion is normal with ejection fraction 60 to 65%. case discussed with cardiology plan for outpatient stress echo (cardiology office will call the patient to arrange it) Currently asymptomatic Continue aspirin, metoprolol and statin Ok from cardiology standpoint to discharge home Hypertension BP stable Continue Amlodipine, Chlorthalidone and metoprolol Continue monitor BP Hyperlipidemia Chol 109, LDL 40, HDL 43 and triglycerides 130 Continue statin Diabetes type 2 Most recent Hba1c 7.4 on 04/23 Will resume Metformin and Jardiance on discharge Continue monitor BS MARTIN currently CPAP noncompliant due to frequent respiratory tract infections from last year) DVT PX on Lovenox subq CODE STATUS FULL CODE Admission and Anticipated Discharge Date Admission Date: May 20, 2020 Subjective Pt was seen and examined Lying in bed with no distress Pt said that she feels fine She is not having any pain currently She has been walking in the hallway with no distress Denies any chest pain, palpitation, dizziness and SOB Physical Exam Physical Exam: General- No acute distress Head- atraumatic Eyes- PERRL, EOMI, ENT- oropharynx clear Neck- supple, no JVD Lungs- clear to auscultation Heart- regular rhythm; no murmur Abdomen- normal bowel sounds, soft, nontender Extremities- no calf tenderness Neuro- alert, oriented x 3; PERRL, EOMI; no facial palsy; no dysarthria Skin- warm & dry Results & Data Results & Data ([facility]) Vital Signs (Past 12 Hours) Vital Signs Temp Pulse Pulse Resp BP BP Pulse Ox 05/20/20 11:45 36.8 C 60 18 118/73 94 05/20/20 09:00 57 L 05/20/20 08:57 05/20/20 08:16 37.1 C 59 L 17 93/60 L 95 05/20/20 04:00 36.9 C 58 L 18 112/70 91 05/20/20 02:05 37.2 C 64 20 144/90 H 98 Pulse Ox 05/20/20 11:45 05/20/20 09:00 05/20/20 08:57 97 05/20/20 08:16 05/20/20 04:00 05/20/20 02:05 (1) Chest pain Chest pain type: precordial pain Qualified Code(s): R07.2 - Precordial pain
[2020-05-20 14:10] VITALS: BP 93/60
--- NOTE | 2020-05-20 17:19 | Emergency Department Note ---
History of Present Illness General Chief complaint: Chest Pain Stated complaint: chest pain Time Seen by Provider: 05/19/20 20:54 Source: patient, RN notes reviewed and old records reviewed Mode of arrival: ambulatory Limitations: no limitations History of Present Illness Provider complaint: Chest pain Onset (ago): hour(s) 6 Location: chest Radiation: back Severity: moderate Pain Consistency: + intermittent Maximum Pain Intensity: 5 Current Pain Intensity: 5 Quality: + burning Relieved By: + immobilization Exacerbated By: + movement Associated symptoms: + denies other symptoms; no diaphoresis, no fever/chills, no nausea/vomiting and no shortness of breath Treatments prior to arrival: none This is a 51-year-old female who presents emergency department complaining of chest pain that has been ongoing for the past several hours. The patient reports her pain developed throughout the day today. She does not recall what she was doing when the pain started. The patient reports she is a diabetic. She describes the pain as a pressure sensation that radiates into her back. She reports immobilization makes the pain better however movement makes the pain worse. Home Medications Home Medications Medication Instructions Recorded Confirmed Type acetaminophen [Tylenol Extra 100 mg PO DIRECTED PRN 11/29/18 05/19/20 History Strength] albuterol sulfate 2 puff INHALATION DIRECTED PRN 11/29/18 05/19/20 History amlodipine 10 mg PO DAILY 11/29/18 05/19/20 History calcium carbonate-vitamin D3 1 tab PO DAILY 11/29/18 05/19/20 History [Calcium 600 + D(3)] chlorthalidone 25 mg PO DAILY 11/29/18 05/19/20 History cholecalciferol (vitamin D3) 2,000 units PO DAILY 11/29/18 05/19/20 History [Vitamin D3] metformin 1,000 mg PO BID 11/29/18 05/19/20 History metoprolol succinate 50 mg PO DAILY 11/29/18 05/19/20 History multivitamin 1 tab PO DAILY 11/29/18 05/19/20 History atorvastatin 40 mg tablet 40 mg PO DAILY 02/21/20 05/19/20 History Jardiance 25 mg PO CQWK 05/19/20 05/19/20 History hydroxyzine HCl 25 - 50 mg PO TID PRN 05/19/20 05/19/20 History sertraline [Zoloft] 50 mg PO DAILY 05/19/20 05/19/20 History aspirin 81 mg PO QAM 30 Days #30 tab 05/20/20 Rx Allergies Allergy/AdvReac Type Severity Reaction Status Date / Time tuberculin, purified protein Allergy Unknown Unknown Verified 05/19/20 21:33 deriva acetaminophen [From Vicodin] Allergy Unknown Verified 05/19/20 21:33 hydrocodone [From Vicodin] Allergy Unknown Verified 05/19/20 21:33 tetanus immune globulin AdvReac Intermediate RED, SORE Verified 05/19/20 21:33 AND HARD AT SITE PER PT lisinopril AdvReac Unknown Chest Verified 05/19/20 21:33 tightness and headache Past Med/Surg History Medical History Abnormal uterine bleeding (AUB) Depression Diabetes Gestational diabetes High blood pressure Migraine headache Pelvic pain UTI (urinary tract infection) Surgical History History of dilation and curettage S/P ACL repair x2, left, 1993. 1993 S/P left knee arthroscopy S/P wisdom tooth extraction Family History Family/Other Colorectal cancer maternal ggm Coronary heart disease Diabetes Hypertension Osteoporosis Mother Coronary heart disease Diabetes Hypertension Osteoporosis Daughter Anxiety Depression Eating disorder Sister Hypertension Depression Anxiety Other Dyslipidemia Pulmonary embolism Denies family history of Ovarian cancer Breast cancer Social History Smoking Status: Never smoker Hx Alcohol Use: No Hx Substance Use: No Preferred Language: Upper Sorbian Communication Ability: Effective Beliefs That Will Affect Care: None Current Living Situation: Spouse and Family Other Information That Helps Us Care for You: No Feels Safe at Home: Yes Safety Concerns: Feels Safe At This Time Review of Systems A total of 10 systems reviewed and were otherwise negative Physical Exam Vital Signs Vital Signs - 24 hr 05/19/20 20:50 05/19/20 21:05 05/19/20 21:48 Temperature 36.6 C Temperature Source Oral Pulse Rate 67 62 Pulse Rate from SpO2 Sensor 62 Respiratory Rate 20 17 Blood Pressure 134/79 123/69 Blood Pressure Mean 97 83 Blood Pressure Position Sitting Pulse Oximetry 99 98 Oxygen Delivery Method Room Air Room Air Sepsis Recent Fever Within 48 Hours No Sepsis New/Unexplained Change in Mental Status No Sepsis Action Taken by Nursing No Action Required 05/19/20 22:30 05/19/20 23:00 05/19/20 23:30 Temperature Temperature Source Pulse Rate 79 62 65 Pulse Rate from SpO2 Sensor 65 62 65 Respiratory Rate 20 20 13 Blood Pressure Blood Pressure Mean Blood Pressure Position Pulse Oximetry 96 94 95 Oxygen Delivery Method Room Air Room Air Room Air Sepsis Recent Fever Within 48 Hours Sepsis New/Unexplained Change in Mental Status Sepsis Action Taken by Nursing 05/20/20 00:00 05/20/20 00:30 05/20/20 00:42 Temperature Temperature Source Pulse Rate 75 65 67 Pulse Rate from SpO2 Sensor 74 65 64 Respiratory Rate 16 21 15 Blood Pressure 127/75 Blood Pressure Mean 85 Blood Pressure Position Pulse Oximetry 93 96 98 Oxygen Delivery Method Room Air Room Air Room Air Sepsis Recent Fever Within 48 Hours Sepsis New/Unexplained Change in Mental Status Sepsis Action Taken by Nursing 05/20/20 01:00 Temperature Temperature Source Pulse Rate 63 Pulse Rate from SpO2 Sensor 63 Respiratory Rate 15 Blood Pressure 113/76 Blood Pressure Mean 83 Blood Pressure Position Pulse Oximetry 95 Oxygen Delivery Method Room Air Sepsis Recent Fever Within 48 Hours Sepsis New/Unexplained Change in Mental Status Sepsis Action Taken by Nursing VITAL SIGNS - Vital signs and nursing notes were reviewed. GENERAL - 50-year-old female appearing stated age who is in no acute distress. Communicates well with provider and answers questions appropriately. SKIN - Without rashes. HEAD - NC/AT. EYES - PERRL with EOMI bilaterally. Sclera anicteric. Palpebral conjunctiva pink and moist with no injection noted. EARS - No deformities of external structures noted on gross examination bilaterally. No pain elicited with palpation of the tragus bilaterally. External auditory canals without discharge or otorrhea. Tympanic membranes pearly escalante without retraction or bulging. No fluid or purulent material visualized behind the TM. Handle of malleus, umbo, cone of light, pars tensa/flaccid all easily visualized. NOSE - Midline and without cyanosis. No epistaxis or purulent drainage noted. Septum midline without deviation or septal hematoma noted. MOUTH/OROPHARYNX - Without perioral cyanosis. Buccal mucosa pink and moist and without leukoplakia. Tongue midline with equal elevation of palate bilaterally. No tonsillar hypertrophy, erythema, or exudates noted. dentition noted. NECK - Neck with FROM. Supple to palpation. lymphadenopathy noted. No nuchal r igidity. LUNGS - Chest wall symmetric without accessory muscle use, intercostals retractions, or central cyanosis. Normal vesicular breath sounds CTA B/L. No wheezes, rales, or rhonchi appreciated. CARDIAC - RRR with S1/S2. No murmur, rubs, or gallops appreciated. ABDOMEN - Abdominal contour without pulsations or visible masses. BS normoactive all four quadrants. No tenderness, palpable masses, hepatosplenomegaly, or ascites noted. EXTREMITIES - No clubbing or peripheral cyanosis. No pretibial edema present. +3/5 radial, posterior tibial, and dorsalis pedis pulses palpated throughout. +5 /5 strength noted in UE/LE bilaterally. NEUROLOGIC - Cranial nerves II through XII grossly intact. Sensory intact to light touch throughout. Patellar reflexes +2/4. PSYCH - A&Ox3 and cooperates fully with examiner. Pt is very pleasant and interacts well with examiner. Course Administered Medications Discontinued Medications Acetaminophen (Acetaminophen 325 Mg Tab) 650 mg PO Q4H PRN PRN Reason: Pain or Fever Stop: 06/19/20 02:03 Last Admin: 05/20/20 09:18 Dose: 650 mg Documented by: [id number] Amlodipine Besylate (Amlodipine Besylate 5 Mg Tab) 10 mg PO DAILY [facility] Stop: 06/19/20 03:34 Last Admin: 05/20/20 04:45 Dose: 10 mg Documented by: [id number] Aspirin (Aspirin Chew 324 Mg) 324 mg PO NOW STA Stop: 05/20/20 01:29 Last Admin: 05/20/20 01:30 Dose: 324 mg Documented by: [id number] Aspirin (Aspirin Chew 324 Mg) Confirm Administered Dose 324 mg .ROUTE .STK-MED ONE Stop: 05/20/20 01:29 Last Admin: 05/20/20 01:30 Dose: Not Given Documented by: [id number] Aspirin (Aspirin 81 Mg Ectab) [facility] Stop: 06/20/20 08:59 Last Admin: 05/20/20 08:35 Dose: 81 mg Documented by: [id number] Atorvastatin Calcium (Atorvastatin 40 Mg Tab) 40 mg PO DAILY [facility] Stop: 06/19/20 08:59 Last Admin: 05/20/20 08:27 Dose: 40 mg Documented by: [id number] Enoxaparin Sodium (Enoxaparin Inj 40 Mg/0.4 Ml Syr) 40 mg SQ QAM [facility]USSEIN Stop: 06/19/20 08:59 Last Admin: 05/20/20 08:30 Dose: 40 mg Documented by: [id number] Lactated Ringer's (Lr) 1,000 mls @ 75 mls/hr IV .[id number] ONE Stop: 05/20/20 15:23 Last Admin: 05/20/20 02:29 Dose: 75 mls/hr Documented by: [id number] Insulin Aspart (Insulin Aspart 100 Units/Ml 3 Ml Pen) 0 units SC ACHS HUSSEIN Stop: 06/19/20 02:29 Last Admin: 05/20/20 12:27 Dose: 3 units Documented by: [id number] Cosigned by: [id number] Admin: 05/20/20 08:51 Dose: Not Given Documented by: [id number] Cosigned by: [id number] Admin: 05/20/20 02:44 Dose: Not Given Documented by: [id number] Insulin Glargine (Insulin Glargine Solostar 100 Units/Ml 3 Ml Pen) 5 units SC DAILY [facility] Stop: 06/19/20 08:59 Last Admin: 05/20/20 09:00 Dose: 5 units Documented by: [id number] Cosigned by: [id number] Ioversol (Ioversol 100ml) 94 ml IV ONCE ONE Stop: 05/19/20 22:48 Last Admin: 05/19/20 22:47 Dose: 94 ml Documented by: [id number] Metoprolol Succinate (Metoprolol Succ 25mg Ext Rel Tab) 25 mg PO DAILY [facility] Stop: 06/19/20 08:59 Last Admin: 05/20/20 08:28 Dose: 25 mg Documented by: [id number] Multivitamins (Multivitamin Tab) 1 tab PO DAILY [facility] Stop: 06/19/20 08:59 Last Admin: 05/20/20 08:26 Dose: 1 tab Documented by: [id number] Nitroglycerin (Nitroglycerin Sl 0.4 Mg/Tab Tab) 0.4 mg SL NOW STA Stop: 05/19/20 21:56 Last Admin: 05/19/20 22:19 Dose: Not Given Documented by: [id number] Nitroglycerin (Nitroglycerin 2% Ointment 30gm Tube) 1 inch EXT Q6H [facility] Stop: 06/18/20 22:14 Last Admin: 05/19/20 22:10 Dose: 1 inch Documented by: [id number] Nitroglycerin (Nitroglycerin Sl 0.4 Mg/Tab Tab) 0.4 mg SL UD PRN PRN Reason: Chest Pain Stop: 06/19/20 02:03 Last Admin: 05/20/20 08:34 Dose: 0.4 mg Documented by: [id number] Sertraline HCl (Sertraline Hcl 50 Mg Tablet) 50 mg PO DAILY [facility] Stop: 06/19/20 08:59 Last Admin: 05/20/20 08:26 Dose: 50 mg Documented by: [id number] Medical Decision Making Differential Diagnosis Cardiac ischemia, aortic dissection, pulmonary embolism, pneumothorax, pneumonia, pericarditis, myocarditis, esophageal rupture, GERD, cholecystitis, pancreatitis, musculoskeletal, as well as other pathologies. Medical Records Attestation: I reviewed the patient's medical records. Home Medications Current Medication List: was personally reviewed by me Laboratory Data Attestation: I reviewed the patient's lab results. Result diagrams: 05/20/20 05:56 05/20/20 05:56 Lab Results 05/19/20 05/19/20 05/19/20 Range/Units 21:18 21:18 21:18 WBC 12.52 H (4.8-10.8) K/uL RBC 4.84 (4.2-5.4) M/uL Hgb 14.0 (12.0-16.0) g/dL Hct 41.1 (37-47) % MCV 84.9 (80-100) fL MCH 28.9 (25-34) pg MCHC 34.1 (32-36) g/dL RDW Std Deviation 43.9 (36.4-46.3) fL RDW Coeff of Ruel 14.0 (11.5-14.5) % Plt Count 305 (130-400) K/uL MPV 10.6 H (7.4-10.4) fL Immature Gran % (Auto) 0.2 % Neut % (Auto) 69.4 % Lymph % (Auto) 22.6 % [place] % (Auto) 5.6 % Eos % (Auto) 2.0 % Baso % (Auto) 0.2 % Neut # (Auto) 8.68 H (1.4-6.5) K/uL Lymph # (Auto) 2.83 (1.2-3.4) K/uL [place] # (Auto) 0.70 H (0.11-0.59) K/uL Eos # (Auto) 0.25 (0-0.5) K/uL Baso # (Auto) 0.03 (0-0.2) K/uL Immature Gran # (Auto) 0.03 H (0.00-0.02) K/uL PT 10.3 (9.0-12.0) Seconds INR 1.0 (0.9-1.1) APTT 24.1 (21.0-31.0) Seconds PTT Ratio 0.9 D-Dimer 320 (0-500) ug/L FEU Sodium 141 (136-145) mmol/L Potassium 3.6 (3.5-5.1) mmol/L Chloride 107 (98-107) mmol/L Carbon Dioxide 22 (21-32) mmol/L Anion Gap 12.0 H (3-11) BUN 17 (7-18) mg/dl Creatinine 0.87 (0.6-1.2) mg/dl Est Cr Clr Drug Dosing 90.6 ml/min Est GFR ( Amer) 88.8 Est GFR (Non-Af Amer) 76.6 BUN/Creatinine Ratio 19.0 (10-20) Glucose 118 H (70-99) mg/dl Calcium 8.9 (8.5-10.1) mg/dl Magnesium 1.8 (1.8-2.4) mg/dl Total Bilirubin 0.3 (0.2-1) mg/dl AST 24 (15-37) U/L ALT 34 (12-78) U/L Alkaline Phosphatase 115 (45-117) U/L Total Creatine Kinase 83 (26-192) U/L CK-MB (CK-2) < 1.0 (0.5-3.6) ng/ml CK/CKMB % Calc TNP Troponin I < 0.015 (0-0.045) ng/ml Total Protein 7.8 (6.4-8.2) gm/dl Albumin 3.4 (3.4-5.0) gm/dl Globulin 4.4 H (2.5-4.0) gm/dl Albumin/Globulin Ratio 0.8 L (0.9-2) Lipase 513 H (73-393) U/L 05/20/20 Range/Units 00:05 WBC (4.8-10.8) K/uL RBC (4.2-5.4) M/uL Hgb (12.0-16.0) g/dL Hct (37-47) % MCV (80-100) fL MCH (25-34) pg MCHC (32-36) g/dL RDW Std Deviation (36.4-46.3) fL RDW Coeff of Ruel (11.5-14.5) % Plt Count (130-400) K/uL MPV (7.4-10.4) fL Immature Gran % (Auto) % Neut % (Auto) % Lymph % (Auto) % [place] % (Auto) % Eos % (Auto) % Baso % (Auto) % Neut # (Auto) (1.4-6.5) K/uL Lymph # (Auto) (1.2-3.4) K/uL [place] # (Auto) (0.11-0.59) K/uL Eos # (Auto) (0-0.5) K/uL Baso # (Auto) (0-0.2) K/uL Immature Gran # (Auto) (0.00-0.02) K/uL PT (9.0-12.0) Seconds INR (0.9-1.1) APTT (21.0-31.0) Seconds PTT Ratio D-Dimer (0-500) ug/L FEU Sodium (136-145) mmol/L Potassium (3.5-5.1) mmol/L Chloride (98-107) mmol/L Carbon Dioxide (21-32) mmol/L Anion Gap (3-11) BUN (7-18) mg/dl Creatinine (0.6-1.2) mg/dl Est Cr Clr Drug Dosing ml/min Est GFR ( Amer) Est GFR (Non-Af Amer) BUN/Creatinine Ratio (10-20) Glucose (70-99) mg/dl Calcium (8.5-10.1) mg/dl Magnesium (1.8-2.4) mg/dl Total Bilirubin (0.2-1) mg/dl AST (15-37) U/L ALT (12-78) U/L Alkaline Phosphatase (45-117) U/L Total Creatine Kinase (26-192) U/L CK-MB (CK-2) (0.5-3.6) ng/ml CK/CKMB % Calc Troponin I < 0.015 (0-0.045) ng/ml Total Protein (6.4-8.2) gm/dl Albumin (3.4-5.0) gm/dl Globulin (2.5-4.0) gm/dl Albumin/Globulin Ratio (0.9-2) Lipase (73-393) U/L Imaging Data Radiologist's Impression: [facility], [place] [phone] CT Scan Report Patient: HECTOR MAGANA Date: 05/20/20 MR#: [id number]: [address] Acct ID:[id number]: [address] Date: 1970[facility] Zip: [place] [address] Age: 50Location: 2S Sex: F Room/Bed: [facility] Att Phy: Sanjeev Guzman M.D.Diagnosis: chest pain Pily Phy: Sanket Rodgers MD(DAVIN)Service Date: 05/19/20 Fam Phy:Interpreting Phy: Bk Garcia MD Admit Phy: Scotty Hawkins MD Ordering Phy: Pio Ortega MD cc: ~ CT abd pelvis IV con only CLINICAL HISTORY: Epigastric pain. Elevated lipase COMPARISON STUDY: None. TECHNIQUE: Patient was scanned in a dynamic helical fashion during intravenous administration of 94 cc of Optiray 320 A dose lowering technique was utilized adhering to the principles of ALARA. CT DOSE: 1544.99 mGy.cm FINDINGS: Lower chest: The heart is normal in size and configuration, without pericardial effusion. The lung bases and pleural spaces are clear. Liver: The contrast-enhanced liver is normal in size, contour, and attenuation. There is no intrahepatic biliary ductal dilatation. The hepatic veins and portal veins are patent. Gallbladder: Contracted Spleen: Normal in size and attenuation. Pancreas: Unremarkable. Adrenal glands: Unremarkable. Kidneys: There are bilateral hypodense renal lesions, statistically representing cysts. There is no hydronephrosis Bowel: There are no transition zones indicate bowel obstruction. There is no evidence of acute diverticulitis. The appendix appears normal. There are scattered colonic air-fluid levels. Peritoneum: There is no intraperitoneal free air or abdominal ascites. Vasculature: The abdominal aorta is normal in course and caliber. Adenopathy: None. Pelvic viscera: The uterus appears bulbous. Adenomyosis cannot be excluded. Skeletal structures: No destructive osseous lesions are seen. IMPRESSION: 1. No evidence of bowel obstruction. No evidence of free air 2. Normal appendix. No evidence of acute diverticulitis 3. Fluid within the stomach and colon. This can be seen in gastroenteritis, but also can be normal. 4. Bulbous uterus 5. No CT evidence of pancreatitis ACT 112: Negative or not required by law. Electronically signed by: Bk Garcia M.D. 05/20/2020 7:46 AM Dictated: 05/20/20740 Transcribed: 05/20/20740 ECG Data Attestation: I personally reviewed and interpreted this ECG as follows: Indication: chest pain Rate (beats per minute): 62 Rhythm: normal sinus Findings: + other (QTC 412); no ST depression and no ST elevation Comparison ECG Date: from (07/30/2017) Change: no significant change Additional Comments: Repeat EKG of 05/19/2020 shows a normal sinus rhythm normal EKG no ST elevation or depression ventricular rate of 64 QTC is 420 it is unchanged from the previous Third repeat EKG of 05/20/2020 shows a normal sinus rhythm no ST elevation or depression QTC is 431 with a ventricular rate of 63 and is unchanged from the previous MDM Narrative Patient was seen and evaluated as above in room C9. Review was performed of nursing notes and vital signs. I did review pertinent previous visits and patient history. After obtaining a thorough history and physical examination the above work up was performed. This is a 50-year-old female who presents emergency department complaining of chest pain. The patient's lipase is elevated however she denies drinking any alcohol. Her pain was relieved by nitro paste here in the emergency department. Based on this I did discuss the case with the hospitalist service who did agree to admit the patient. An order was placed for continuous cardiac monitoring. The monitor shows a rate of 60 with Normal SInus rhythm. The patient was evaluated during the global COVID- pandemic, and that diagnosis was suspected/considered upon their initial presentation. Their evaluation, treatment and testing was consistent with current guidelines for patients who present with complaints or symptoms that may be related to COVID- 19. Impression & Plan Chest pain Discharge Plan Visit Data Chief Complaint: Chest Pain Stated Complaint: chest pain ED Provider: Pio Ortega Discharge Problem: Chest pain Patient Disposition: Admitted As Inpatient Discharge Instructions Interventions: ED Discharge Assessment Last Done: 05/20/20 01:47 Discharge Problem: Chest pain Qualifiers: Chest pain type: unspecified Qualified Code(s): R07.9 - Chest pain, unspecified
--- NOTE | 2020-05-20 23:04 | Electrocardiogram Report ---
Test Reason : Blood Pressure : / mmHG Vent. Rate : 062 BPM Atrial Rate : 062 BPM P-R Int : 160 ms QRS Dur : 078 ms QT Int : 406 ms P-R-T Axes : 035 013 022 degrees QTc Int : 412 ms Normal sinus rhythm Normal ECG When compared with ECG of 30-JUL-2017 17:13, Nonspecific T wave abnormality no longer evident in Lateral leads Confirmed by Artemio Gomes ([id number]) on 05/20/2020 11:04:26 PM Referred By: REFERRED SELF Confirmed By:Artemio Gomes
--- NOTE | 2020-05-20 23:39 | Electrocardiogram Report ---
Test Reason : Blood Pressure : / mmHG Vent. Rate : 064 BPM Atrial Rate : 064 BPM P-R Int : 172 ms QRS Dur : 070 ms QT Int : 408 ms P-R-T Axes : 027 003 016 degrees QTc Int : 420 ms Normal sinus rhythm Normal ECG When compared with ECG of 19-MAY-2020 20:50, No significant change was found Confirmed by Artemio Gomes ([id number]) on 05/20/2020 11:38:40 PM Referred By: REFERRED SELF Confirmed By:Artemio Gomes
--- NOTE | 2020-05-20 23:44 | Electrocardiogram Report ---
Test Reason : Blood Pressure : / mmHG Vent. Rate : 063 BPM Atrial Rate : 063 BPM P-R Int : 168 ms QRS Dur : 076 ms QT Int : 422 ms P-R-T Axes : 038 007 021 degrees QTc Int : 431 ms Normal sinus rhythm Low voltage QRS Borderline ECG When compared with ECG of 19-MAY-2020 21:51, No significant change was found Confirmed by Artemio Gomes ([id number]) on 05/20/2020 11:44:07 PM Referred By: REFERRED SELF Confirmed By:Artemio Gomes
[2020-05-21] MEDS ORDERED: ASPIRIN 81 MG ECTAB PO SCH (09:00)
--- NOTE | 2020-05-23 23:07 | Discharge Summary ---
Date of Service May 20, 2020 Admission HPI Per Admitting Provider History obtained from patient and records. Medical history significant for hypertension, hyperlipidemia, DM 2 on oral medications, history of PCOS, MARTIN (currently CPAP noncompliant.) Yesterday afternoon patient was just walking around when she experienced intermittent left-sided chest pressure without radiation or cough or shortness of breath or diaphoresis symptoms. Different from heartburn. No prior episodes. Some stresses at home. Chest discomfort relieved by Nitropaste at the ER. Medical History as above Surgical History : Knee surgeries Family History : Diabetes, heart disease, stroke Personal/Social history : Non-smoker, no EtOH intake, foot specialist Admission Exam Per Admitting Provider GENERAL: Comfortable, pleasant, obese, no respiratory distress SKIN: Normal color, warm HEENT: [place] palpebral conjunctivae, no ptosis, moist buccal mucosa NECK : Supple, short neck, no tenderness CHEST : CTA, no tenderness HEART : RRR, no obvious murmurs ABDOMEN: Some distention, nontender EXTREMITIES : Chronic bilateral LE swelling, no LE tenderness, no other conspi cuous deformities noted NEUROLOGIC : Coherent, no facial asymmetry, no other gross focality Principal Diagnosis Chest pain Hypertension Diabetes type 2 Discharge Exam General- No acute distress Head- atraumatic Eyes- PERRL, EOMI, ENT- oropharynx clear Neck- supple, no JVD Lungs- clear to auscultation Heart- regular rhythm; no murmur Abdomen- normal bowel sounds, soft, nontender Extremities- no calf tenderness Neuro- alert, oriented x 3; PERRL, EOMI; no facial palsy; no dysarthria Skin- warm & dry Discharge Data Allergies Allergy/AdvReac Type Severity Reaction Status Date / Time tuberculin, purified protein Allergy Unknown Unknown Verified 05/19/20 21:33 deriva acetaminophen [From Vicodin] Allergy Unknown Verified 05/19/20 21:33 hydrocodone [From Vicodin] Allergy Unknown Verified 05/19/20 21:33 tetanus immune globulin AdvReac Intermediate RED, SORE Verified 05/19/20 21:33 AND HARD AT SITE PER PT lisinopril AdvReac Unknown Chest Verified 05/19/20 21:33 tightness and headache Consultations 05/20/20 00:43 ED Decision to Admit Stat 05/20/20 02:04 Consult Cardiology Routine Ordered Studies 05/19/20 22:31 CT abd pelvis IV con only Urgent CT abd pelvis IV con only CLINICAL HISTORY: Epigastric pain. Elevated lipase COMPARISON STUDY: None. TECHNIQUE: Patient was scanned in a dynamic helical fashion during intravenous administration of 94 cc of Optiray 320 A dose lowering technique was utilized adhering to the principles of ALARA. CT DOSE: 1544.99 mGy.cm FINDINGS: Lower chest: The heart is normal in size and configuration, without pericardial effusion. The lung bases and pleural spaces are clear. Liver: The contrast-enhanced liver is normal in size, contour, and attenuation. There is no intrahepatic biliary ductal dilatation. The hepatic veins and portal veins are patent. Gallbladder: Contracted Spleen: Normal in size and attenuation. Pancreas: Unremarkable. Adrenal glands: Unremarkable. Kidneys: There are bilateral hypodense renal lesions, statistically representing cysts. There is no hydronephrosis Bowel: There are no transition zones indicate bowel obstruction. There is no evidence of acute diverticulitis. The appendix appears normal. There are scattered colonic air-fluid levels. Peritoneum: There is no intraperitoneal free air or abdominal ascites. Vasculature: The abdominal aorta is normal in course and caliber. Adenopathy: None. Pelvic viscera: The uterus appears bulbous. Adenomyosis cannot be excluded. Skeletal structures: No destructive osseous lesions are seen. IMPRESSION: 1. No evidence of bowel obstruction. No evidence of free air 2. Normal appendix. No evidence of acute diverticulitis 3. Fluid within the stomach and colon. This can be seen in gastroenteritis, but also can be normal. 4. Bulbous uterus 5. No CT evidence of pancreatitis ACT 112: Negative or not required by law. Electronically signed by: Bk Garcia M.D. 05/20/2020 7:46 AM Dictated: 05/20/20 0741 Transcribed: 05/20/20 0741 XR chest 1V portable CLINICAL HISTORY: Atypical chest pain COMPARISON STUDY: 07/30/2017 FINDINGS: The cardiac and mediastinal contours are normal. There is no evidence of focal pulmonary consolidation. There is no evidence of failure. No pleural effusions are visualized.[No pneumothorax is visualized. IMPRESSION: No active disease in the chest. ACT 112: Negative or not required by law. Electronically signed by: Bk Garcia M.D. 05/20/2020 8:22 AM Dictated: 05/20/20 0821 Transcribed: 05/20/20820 Hospital Course (1) Chest pain: Present on admission with exertional chest pain that relieved by nitroglycerin Troponin x3 negative EKG showed no ischemic changes Cardio on board Echo showed mild concentric left ventricular hypertrophy. Left ventricular systolic function is normal. Left ventricular wall motion is normal with ejection fraction 60 to 65%. case discussed with cardiology plan for outpatient stress echo (cardiology office will call the patient to arrange it) Currently asymptomatic Continue aspirin, metoprolol and statin Ok from cardiology standpoint to discharge home Hypertension BP stable Continue Amlodipine, Chlorthalidone and metoprolol Continue monitor BP Hyperlipidemia Chol 109, LDL 40, HDL 43 and triglycerides 130 Continue statin Diabetes type 2 Most recent Hba1c 7.4 on 04/23 Will resume Metformin and Jardiance on discharge Continue monitor BS MARTIN currently CPAP noncompliant due to frequent respiratory tract infections from last year) DVT PX on Lovenox subq CODE STATUS FULL CODE Total Time Total Time Spent Total Time Spent (In Minutes): 35 minutes Total Time Includes: Examination of the Patient, Discharge Planning, Medication Reconciliation, Communication With Other Providers and Other Discharge Plan Discharge Items Patient Disposition: Home - Self-Care Reason For Visit: chest pain Discharge Diagnosis: Chest pain Hypertension Diabetes Activity: Resume your previous activity Non-emergency contact: Primary Care Provider and Roving Sizer Call non-emergency contact if: you have any medication questions and your wound pain has increased Follow-up/Referrals: Sanket Rodgers MD [Primary Care Provider] - Diet: Heart Healthy Addtl Attending Provider Instructions: Follow up with your primary care provider Dr. Rodgers in 1 week (Office will call you for the appointment) Follow up with cardiology to arrange for the stress echocardiogram ( Office will call you for the appointment) Continue aspirin and avoid strenuous activity till study complete Seek medical attention if chest pain reoccurs Since you received contrast for the CT scan, Please hold metformin today and tomorrow morning. Pending Studies at Discharge: No Stand-Alone Forms: My [employer], Smoking Cessation Medications and DC Order Prescriptions: New aspirin 81 mg Tablet,Delayed Release (Dr/Ec) 81 mg PO QAM 30 Days Qty: 30 RF: 0 Continued atorvastatin 40 mg tablet 40 mg PO DAILY RF: 0 metoprolol succinate 50 mg tablet extended release 24 hr 50 mg PO DAILY RF: 0 chlorthalidone 25 mg tablet 25 mg PO DAILY RF: 0 acetaminophen [Tylenol Extra Strength] 500 mg Tablet 100 mg PO DIRECTED PRN (Reason: Fever Or Pain) RF: 0 amlodipine 10 mg tablet 10 mg PO DAILY RF: 0 metformin 1,000 mg tablet 1,000 mg PO BID RF: 0 albuterol sulfate 90 mcg/actuation HFA aerosol inhaler 2 puff Inhalation DIRECTED PRN (Reason: Shortness Of Breath) RF: 0 multivitamin Tablet,Chewable 1 tab PO DAILY RF: 0 calcium carbonate-vitamin D3 [Calcium 600 + D(3)] 600 mg(1,500mg) -400 unit Tablet 1 tab PO DAILY RF: 0 cholecalciferol (vitamin D3) [Vitamin D3] 2,000 unit Capsule 2,000 units PO DAILY RF: 0 Jardiance 25 mg tablet 25 mg PO CQWK RF: 0 hydroxyzine HCl 25 mg tablet 25 - 50 mg PO TID PRN (Reason: Anxiety) RF: 0 sertraline [Zoloft] 50 mg tablet 50 mg PO DAILY RF: 0 Discharge Orders: Discharge Order (Routine); Ordered 05/20/20 Ordered By: Sanjeev Guzman Admission Data Admit Date/Time: 05/20/20 01:27 Attending Provider: Sanjeev Guzman Admit Provider: Scotty Hawkins Primary Care Provider: Sanket Rodgers Other Providers: Scotty Hawkins ; Johnson Harry ; Uzair Sullivan ; Juancarlos Arreola ; Pastor Pelayo ; Deep Ewing ; Israel Sexton ; Kavita Buchanan ; Joanne Barrera ; Gal Moreno Other Interventions: Discharge Summary Assessment (RN) Last Done: 05/20/20 14:08
== END 2020-05-20 15:24 | disposition home or self-care (01) ==
LOC: ED 20:42 → 2S 20:42 → UNDODISOB 05-20 14:46

== ENCOUNTER 2022-06-03 07:14 | Observation (INO) ==
--- NOTE | 2022-02-18 13:35 | PAT Medication Instructions ---
Medication Instructions Date of Service February 18, 2022 Home Medications acetaminophen 500 mg tablet (Tylenol Extra Strength) 1,000 mg PO Q4 PRN albuterol sulfate 90 mcg/actuation aerosol inhaler 2 puff INHALATION DIRECTED PRN amlodipine 10 mg tablet 10 mg PO QAM chlorthalidone 25 mg tablet 25 mg PO QAM cholecalciferol (vitamin D3) 50 mcg (2,000 unit) capsule (Vitamin D3) 2,000 units PO QAM metformin 1,000 mg tablet 1,000 mg PO BID metoprolol succinate 50 mg tablet,extended release 24 hr 50 mg PO QAM atorvastatin 40 mg tablet 40 mg PO QAM empagliflozin 25 mg tablet (Jardiance) 25 mg PO QAM hydroxyzine HCl 25 mg tablet 25 - 50 mg PO TID PRN sertraline 50 mg tablet (Zoloft) 50 mg PO QAM fluticasone propionate 50 mcg/actuation nasal spray,suspension 1 spray INTRANASAL DAILY PRN ferrous sulfate 325 mg (65 mg iron) tablet (Iron (ferrous sulfate)) 325 mg PO Q OTHER DAY benzonatate 100 mg capsule 100 mg PO BID PRN prednisone 5 mg tablets in a dose pack 5 mg PO UD Continue as directed prednisone 5 mg tablets in a dose pack 5 mg PO UD DO NOT take the morning of surgery chlorthalidone 25 mg tablet 25 mg PO QAM cholecalciferol (vitamin D3) 50 mcg (2,000 unit) capsule (Vitamin D3) 2,000 units PO QAM metformin 1,000 mg tablet 1,000 mg PO BID empagliflozin 25 mg tablet (Jardiance) 25 mg PO QAM hydroxyzine HCl 25 mg tablet 25 - 50 mg PO TID PRN ferrous sulfate 325 mg (65 mg iron) tablet (Iron (ferrous sulfate)) 325 mg PO Q OTHER DAY benzonatate 100 mg capsule 100 mg PO BID PRN Take morning of surgery With a small sip of water, OTHERWISE NOTHING TO EAT OR DRINK AFTER MIDNIGHT: acetaminophen 500 mg tablet (Tylenol Extra Strength) 1,000 mg PO Q4 PRN (okay to take up to 4 hours prior to surgery if needed) albuterol sulfate 90 mcg/actuation aerosol inhaler 2 puff INHALATION DIRECTED PRN (use if needed; please bring rescue inhaler with you to hospital day of surgery if possible) amlodipine 10 mg tablet 10 mg PO QAM metoprolol succinate 50 mg tablet,extended release 24 hr 50 mg PO QAM atorvastatin 40 mg tablet 40 mg PO QAM sertraline 50 mg tablet (Zoloft) 50 mg PO QAM fluticasone propionate 50 mcg/actuation nasal spray,suspension 1 spray INTRANASAL DAILY PRN (if needed) Take evening before surgery acetaminophen 500 mg tablet (Tylenol Extra Strength) 1,000 mg PO Q4 PRN (if needed) albuterol sulfate 90 mcg/actuation aerosol inhaler 2 puff INHALATION DIRECTED PRN (if needed) metformin 1,000 mg tablet 1,000 mg PO BID hydroxyzine HCl 25 mg tablet 25 - 50 mg PO TID PRN (if needed) fluticasone propionate 50 mcg/actuation nasal spray,suspension 1 spray INTRANASAL DAILY PRN (if needed) benzonatate 100 mg capsule 100 mg PO BID PRN (if needed) Other Notes If you have any questions please call us at [phone] or [phone] or [phone] or [phone]
--- NOTE | 2022-02-19 10:49 | Anesthesiology Consultation ---
Date of Service February 19, 2022 Assessment & Plan (1) Encounter for pre-operative examination: Chart Review Chart Review: Acceptable Risk for Surgery and Patient seen in Pre Admission Testing - Check BSG AM DOS - Check test AM DOS Per PAT appt on 02/19/22, patient denies any recent travel or large group activities. No known Covid positive exposures or Covid related symptoms. Pt tested Covid positive 02/02/22- does have residual cough and congestion but improving significantly. Due to 90 day protocol- preop Covid testing not needed prior to surgery. Educated on importance of self quarantining, social distancing and wearing mask in public for the patient one week prior to surgery and after Covid testing done History Surgery Operation Date: 03/21/22 12:00 Proposed Procedures p Left Total Knee Arthroplasty - Vahid Diaz DO Height/Weight Height: 5 ft 3.25 in Weight: 104.7 kg Allergies Allergy/AdvReac Type Severity Reaction Status Date / Time hydrocodone [From Vicodin] Allergy Intermediate HEADACHE Verified 02/18/22 11:23 WITH ITCHING lisinopril Allergy Intermediate Chest Verified 02/18/22 11:23 tightness and headache tuberculin, purified protein Allergy Intermediate SWELLING Verified 02/19/22 10:41 deriva AT SITE tetanus immune globulin AdvReac Intermediate RED, SORE Verified 02/18/22 11:23 AND HARD AT SITE PER PT Medications Home Medications Medication Instructions Recorded Confirmed Last Taken acetaminophen 500 mg tablet 1,000 mg PO Q4 PRN 11/29/18 02/18/22 02/02/22 (Tylenol Extra Strength) albuterol sulfate 90 mcg/actuation 2 puff INHALATION DIRECTED PRN 11/29/18 02/18/22 Unknown aerosol inhaler amlodipine 10 mg tablet 10 mg PO QAM 11/29/18 02/18/22 02/02/22 chlorthalidone 25 mg tablet 25 mg PO QAM 11/29/18 02/18/22 02/02/22 cholecalciferol (vitamin D3) 50 2,000 units PO QAM 11/29/18 02/18/22 02/02/22 mcg (2,000 unit) capsule (Vitamin D3) metformin 1,000 mg tablet 1,000 mg PO BID 11/29/18 02/18/22 02/02/22 metoprolol succinate 50 mg 50 mg PO QAM 11/29/18 02/18/22 02/02/22 tablet,extended release 24 hr atorvastatin 40 mg tablet 40 mg PO QAM 02/21/20 02/18/22 02/02/22 empagliflozin 25 mg tablet 25 mg PO QAM 05/19/20 02/18/22 02/02/22 (Jardiance) hydroxyzine HCl 25 mg tablet 25 - 50 mg PO TID PRN 05/19/20 02/18/22 Unknown sertraline 50 mg tablet (Zoloft) 50 mg PO QAM 05/19/20 02/18/22 02/02/22 fluticasone propionate 50 1 spray INTRANASAL DAILY PRN 03/06/21 02/18/22 Unknown mcg/actuation nasal spray,suspension ferrous sulfate 325 mg (65 mg 325 mg PO Q OTHER DAY 02/02/22 02/18/22 02/02/22 iron) tablet (Iron (ferrous sulfate)) benzonatate 100 mg capsule 100 mg PO BID PRN 02/18/22 02/18/22 Unknown prednisone 5 mg tablets in a dose 5 mg PO UD 02/18/22 02/18/22 Unknown pack 3-in-1 Commode #1 ea 02/19/22 02/19/22 Unknown Past Medical History Medical History (Updated 02/19/22 @ 16:28 by Kavita Lundberg PA-C) ADD (attention deficit disorder) No meds currently Anxiety and depression Diabetes mellitus, type 2 No recent glucose checks per patient History of COVID-19 - 02/02/22>[facility] ER *FEVER/SWEATING/BODY ACHES/HEADACHES/EYE PAIN (SYMPTOMS IMPROVING/STILL MILD COUGH AND MILD CONGESTION- WORSE IN THE MORNING; MILD BODY ACHES AND HEADACHES/FATIGUE) - FINISHING PREDNISONE TAPER 02/21/22 (Pt will follow up with PAT or PCP if symptoms are not fully resolved by time of surgery) Hyperlipidemia Hypertension Migraine headache Post traumatic stress disorder Restless leg syndrome Sleep apnea No device currently>last device recalled Temporomandibular joint disorder NO LOCKING NOW>WENT TO PHYSICAL THERAPY Exercise / Class Metabolic Activity III < 4 Walking/Shop/Light housework (one flight of stairs - mild SOB, no chest pain ) Past Family History Family History Family/Other Diabetes Osteoporosis Coronary heart disease Colorectal cancer maternal ggm Hypertension Mother Diabetes Osteoporosis Coronary heart disease Hypertension Daughter Anxiety Depression Eating disorder Sister Anxiety Depression Hypertension Other Dyslipidemia No family history of adverse response to anesthesia Pulmonary embolism Denies family history of Ovarian cancer Breast cancer Past Surgical History Surgical History H/O arthroscopy of left knee History of dilation and curettage History of tooth extraction S/P ACL repair LEFT X 2 S/P wisdom tooth extraction Past Anesthesia History No Hx of Anesthesia Complications and No Family Hx of Anesthesia Complications History of PONV No Hx of PONV and Hx of Motion Sickness Social History Smoking Status: Never smoker Hx Alcohol Use: No Hx Substance Use: No substance use type: does not use Review of Systems Mild cough (residual from Covid infection)- mostly in the morning Hx of blood transfusion s/p childbirth Patient denies chest pain, shortness of breath at rest, reflux, wheezing, palpitations. No hx of seizures, stroke, HI. No hx of blood clots Physical Exam Vital Signs VITALS BP 109/70 P 59 TEMP 98.0 SP02 96% RESP 16 Constitutional no acute distress ENMT Mouth: no TMJ clicking Thyromental Distance: > or= 3.5 Finger Breadths (3.5) Mallampati Class: II Two base to implants on left molars Broken tooth (molar) to right side teeth Neck + limited neck extension (mild ) Respiratory normal respiratory effort; no respiratory distress Auscultation: lungs clear to auscultation bilaterally; no wheezes Cardiovascular Rate/Rhythm: regular rate and regular rhythm Heart Sounds: no murmur Vessels: no carotid bruit Musculoskeletal Spine: + pain with cervical ROM (mild ) Extremities: extremities normal to inspection Psychiatric Orientation: alert Lab Results Anesthesia Preop Results Results Anesthesia Widget: WBC 12.16 K/uL (4.8-10.8) H 02/19/22 Hgb 14.6 g/dL (12.0-16.0) 02/19/22 Hct 43.5 % (37-47) 02/19/22 Plt 293 K/uL (130-400) 02/19/22 Na 137 mmol/L (136-145) 02/19/22 K 3.7 mmol/L (3.5-5.1) 02/19/22 Cl 104 mmol/L (98-107) 02/19/22 CO2 23 mmol/L (21-32) 02/19/22 BUN 23 mg/dl (6-23) 02/19/22 Creat 0.69 mg/dl (0.6-1.2) 02/19/22 Glucose Level 159 mg/dl (70-99(Fasting)) H 02/19/22 PT 10.1 Seconds (9.0-12.0) 02/19/22 PTT 21.7 Seconds (21.0-31.0) 02/19/22 INR 0.9 (0.9-1.1) 02/19/22 HA1c 7.4 % (4.5-5.6) H 02/19/22 Blood Type A Positive 02/19/22 Antibody Screen NEGATIVE 02/19/22 Testing Laboratory Results Mild leukocytosis- on prednisone taper currently Electrocardiogram Date: 02/19/22 Findings: + SB @ (58bpm ) Chest X-Ray Date: 02/19/22 Findings: + NAD Echocardiogram Date: 05/20/20 EF: 60-65% LV Function: normal RWMA: + none Other Findings: + LVH (mild/concentric ) Valvular Disease: + no significant valvular disease
--- NOTE | 2022-06-03 06:46 | History & Physical Report ---
Date of Service June 03, 2022 Assessment & Plan (1) Osteoarthritis of left knee: We will proceed with a left total knee arthroplasty. Postoperatively she will be in our outpatient joint protocol. She will be started on aspirin for DVT prophylaxis and discharged home on oral pain medications. She plans to use energy physical therapy upon discharge. History of Present Illness Chief Complaint: Osteoarthritis of the left knee. Primary Care Provider: Eulalio Ferraro DO Draper is a pleasant 52-year-old female who has been dealing with chronic worsening left knee pain. She had 2 ACL reconstructions in the . She has gone on to develop severe osteoarthritis of her left knee. After failing years of conservative treatment, she has elected to proceed with a left total knee arthroplasty. . Allergies Allergy/AdvReac Type Severity Reaction Status Date / Time hydrocodone [From Vicodin] Allergy Intermediate HEADACHE Verified 05/23/22 14:05 WITH ITCHING lisinopril Allergy Intermediate Chest Verified 05/23/22 14:05 tightness and headache tuberculin, purified protein Allergy Intermediate SWELLING Verified 05/23/22 14:05 deriva AT SITE tetanus immune globulin AdvReac Intermediate RED, SORE Verified 05/23/22 14:05 AND HARD AT SITE PER PT Home Medications Medication Instructions Recorded Confirmed Type acetaminophen 500 mg tablet 1,000 mg PO Q4 PRN Pain 11/29/18 05/23/22 History (Tylenol Extra Strength) albuterol sulfate 90 mcg/actuation 2 puff inhalation DIRECTED PRN 11/29/18 05/23/22 History aerosol inhaler Shortness Of Breath amlodipine 10 mg tablet 10 mg PO QAM 11/29/18 05/23/22 History chlorthalidone 25 mg tablet 25 mg PO QAM 11/29/18 05/23/22 History cholecalciferol (vitamin D3) 50 2,000 units PO QAM 11/29/18 05/23/22 History mcg (2,000 unit) capsule (Vitamin D3) metformin 1,000 mg tablet 1,000 mg PO BID 11/29/18 05/23/22 History metoprolol succinate 50 mg 50 mg PO QAM 11/29/18 05/23/22 History tablet,extended release 24 hr atorvastatin 40 mg tablet 40 mg PO QAM 02/21/20 05/23/22 History empagliflozin 25 mg tablet 25 mg PO QAM 05/19/20 05/23/22 History (Jardiance) hydroxyzine HCl 25 mg tablet 25 - 50 mg PO TID PRN Anxiety 05/19/20 05/23/22 History sertraline 50 mg tablet (Zoloft) 50 mg PO QAM 05/19/20 05/23/22 History fluticasone propionate 50 1 spray intranasal DAILY PRN 03/06/21 05/23/22 History mcg/actuation nasal Congestion spray,suspension ferrous sulfate 325 mg (65 mg 325 mg PO Q OTHER DAY 02/02/22 05/23/22 History iron) tablet (Iron (ferrous sulfate)) 3-in-1 Commode #1 ea 02/19/22 02/19/22 Rx turmeric root extract 500 mg 1,500 mg PO HS 05/23/22 05/23/22 History capsule walker (Ultra-Light Rollator misc) #1 ea 05/27/22 Rx Past Med/Surg History Medical History ADD (attention deficit disorder) No meds currently Anxiety and depression Diabetes mellitus, type 2 No recent glucose checks per patient History of COVID-19 - 02/02/22>[facility] ER *FEVER/SWEATING/BODY ACHES/HEADACHES/EYE PAIN (SYMPTOMS IMPROVING/STILL MILD COUGH AND MILD CONGESTION- WORSE IN THE MORNING; MILD BODY ACHES AND HEADACHES/FATIGUE) - FINISHING PREDNISONE TAPER 02/21/22 (Pt will follow up with PAT or PCP if symptoms are not fully resolved by time of surgery) Hyperlipidemia Hypertension Migraine headache Post traumatic stress disorder Restless leg syndrome Sleep apnea No device currently>last device recalled Temporomandibular joint disorder NO LOCKING NOW>WENT TO PHYSICAL THERAPY Surgical History H/O arthroscopy of left knee History of dilation and curettage History of tooth extraction X 2 S/P ACL repair LEFT X 2 S/P wisdom tooth extraction Family History Family/Other Diabetes COUSINS Osteoporosis Coronary heart disease Colorectal cancer maternal ggm Hypertension Mother Diabetes Osteoporosis Coronary heart disease Hypertension Daughter Anxiety Depression Eating disorder Sister Anxiety Depression Hypertension Other Dyslipidemia No family history of adverse response to anesthesia Pulmonary embolism Denies family history of Ovarian cancer Breast cancer Social History Smoking Status: Never smoker Second Hand Exposure: Yes (ON OCC); Hx Alcohol Use: No Hx Substance Use: No Preferred Language: Chinese Communication Ability: Effective Bulk Plant Operator Required: No Beliefs That Will Affect Care: None Current Living Situation: Spouse and Family current occupational status: employed Feels Safe at Home: Yes Assistive Devices: Cane and Glasses Review of Systems All systems reviewed & are unremarkable except as noted in HPI & below. Physical Exam On physical examination of the left knee, she does have a varus deformity. She has range of motion of 10 to 110 degrees. She has no gross instability. She has pain of the distal femoral condyles.. Constitutional WD/WN, vitals as above Eyes PERRL, conjunctivae normal, anicteric sclerae ENMT external ear and nose normal, oropharynx normal Neck trachea midline, no thyromegaly Respiratory normal respiratory effort, lungs clear to auscultation Cardiovascular RRR, no murmur, no edema Gastrointestinal (Abdomen) normal bowel sounds, soft, nontender, no hepatosplenomegaly Skin no rashes, warm and dry Psychiatric A+Ox3, euthymic affect Results & Data Results & Data Laboratory Results . Diagnostic Findings X-rays of the left knee show advanced osteoarthritis with joint space narrowing, osteophyte formation, and [id number] articulation. PG Care Time/CCT Total # of Minutes Spent Total Time Spent with Patient: Total time spent is greater than 50% in coordination of care (as documented) at patient's floor/unit and/or counseling patient: Coding Level of Care Code None Diagnoses Osteoarthritis of left knee M17.12
[~2022-06-03 07:14] MED LIST changes: -ACET-1311 PO; +ACETAMINOPHEN 500 MG TAB PO SCH; +FAMOTIDINE 20 MG TAB PO SCH; +GABAPENTIN 300 MG CAP PO SCH; -IBUP-1050 PO; +Ketorolac (*for OR use only*) 30 MG, dexAMETHasone 4 MG, KETAMINE HCL (**OR use only) 1... INFIL SCH; +LR 500ML BOLUS, THEN 15ML/HR IV SCH; +LR 60ML/HR IV SCH; +MEPIVACAINE HCL 1.5% 30 ML VIAL ONE; -METR1GEL3; -OMEG10007 PO; -PRENTAB26 PO; +ROPIVACAINE 0.5% 5 MG/ML 30 ML VIAL ONE; +TRANEXAMIC ACID 1,000 MG **IV Intra-op IV SCH; +TRANEXAMIC ACID 1,000 MG **IV Pre-op IV SCH; +ceFAZolin 2000MG 2,000 MG/15 ML SYR IV SCH; +dexAMETHasone 4 MG TAB PO SCH
[2022-06-03 08:04] LABS: Eosinophils # (auto) 0.66 K/uL (0-0.50); Eosinophils % (auto) 6.6 %; Hematocrit (blood only) 41.5 % (34.1-44.9); Hemoglobin 13.8 g/dl (12.0-16.0); Immature Granulocytes # (auto) 0.03 K/uL (0.00-0.02); Immature Granulocytes % (auto) 0.3 %; Lymphocytes # (auto) 2.41 K/uL (1.2-3.4); Lymphocytes % (auto) 24.1 %; Mean Corpuscular Hemoglobin 28.8 pg (25.0-34.0); Mean Corpuscular Hgb Conc 33.3 g/dL (32.0-36.0); Mean Corpuscular Volume 86.6 fL (80.0-100.0); Mean Platelet Volume 10.7 fL (9.4-12.3); Neutrophils # (auto) 6.12 K/uL (1.4-6.5); Platelet Count 277 K/uL (130-400); RDW Coefficient of Variation 13.8 % (11.5-14.5); RDW Standard Deviation 43.8 fL (36.4-46.3); Red Blood Count 4.79 M/uL (3.93-5.22); White Blood Count 10.02 K/ul (4.8-10.8)
[2022-06-03 08:17] LABS: Partial Thromboplastin Ratio 0.9; Partial Thromboplastin Time 23.7 Seconds (21.0-31.0); Prothrombin Time 10.3 Seconds (9.0-12.0)
[2022-06-03 08:34] LABS: BUN Creatinine Ratio 43.5 (10-20); Calcium 9.7 mg/dl (8.5-10.1); Creatinine Clr Calc Pharmacy 122.3 ml/min; Est GFR (African American) 118.5 ml/min; Est GFR (Non-African American) 102.2 ml/min; Potassium 3.7 mmol/L (3.5-5.1)
[2022-06-03] MEDS ORDERED: ORTHO JOINT ANESTHETIC ONE (08:41)
[2022-06-03] MEDS ORDERED: PROPOFOL IV EMULSION 10 MG/ML 20 ML VIAL IV ONE ×4 (08:51→11:12)
[2022-06-03] MEDS ORDERED: MIDAZOLAM HCL 1 MG/ML 2ML VIAL ONE ×2 (08:51→10:28)
[2022-06-03] MEDS ORDERED: LIDOCAINE 2% MPF LOCAL 5 ML VIAL INFIL ONE (08:51)
[2022-06-03] MEDS ORDERED: fentaNYL citrate 100 MCG/2 ML VIAL ONE ×3 (08:51→11:30)
[2022-06-03] MEDS ORDERED: ePHEDrine sulfate 50 MG/ML AMP IV PRN (08:54)
[2022-06-03] MEDS ORDERED: ONDANSETRON INJ 2 MG/ML 2 ML VIAL IV PRN ×2 (08:54→13:34)
[2022-06-03] MEDS ORDERED: ATROPINE SULFATE 0.1 MG/ML 10ML SYR IV PRN (08:54)
[2022-06-03] MEDS ORDERED: oxyCODONE/ACETAMINOPHEN 5mg/325mg TAB PO PRN (10:59)
[2022-06-03] MEDS ORDERED: KETAMINE 50 MG/5 ML SYRINGE ONE (11:02)
--- NOTE | 2022-06-03 11:02 | Operative Report ---
PG Post Operative Report Pre & Post Diagnosis Operation Date: 03/21/22 12:00 <No data on this case meets the specified criteria> Operation Date: 06/03/22 09:20 Pre-Op Diagnosis: Osteoarthritis of left knee with retained hardware from ACL reconstruction Post-Op Diagnosis: Osteoarthritis of left knee with retained hardware from ACL reconstruction I identified the patient and participated in the time-out.: Yes Procedure Operation Date: 03/21/22 12:00 <No data on this case meets the specified criteria> Operation Date: 06/03/22 09:20 Actual Procedures p Left Total Knee Arthroplasty(Left) with open removal of hardware- Vahid Diaz DO Surgeon Vahid Diaz DO Feed House Supervisor Vahid Leal PA-C Estimated Blood Loss 100 Findings Consistent with Post-Op Diagnosis Specimens Left femoral and tibial bone Description of Procedure Implants used: I used a Joe Persona total knee arthroplasty system with a size 6 standard femur, E tibia, 31 oval patella, and a size 13 medial congruent polyethylene bearing. All components were cemented in place with Biomet cement. Bonny arrived [facility] for the above procedure. She was seen in the preoperative holding area and the operative extremity was identified and signed. She was given a preoperative antibiotic, TXA, a spinal anesthetic and an adductor nerve block. She was taken back to the operating room and laid on the table in supine position. She was given basic sedation. The operative knee was then prepped and draped in sterile fashion. A timeout was done, and the patient and the operative extremity was properly identified. A midline incision was made directly over the patella. Dissection was taken down to the extensor mechanism. A subvastus arthrotomy was used. The medial retinaculum was released and the fat pad was mostly excised. The knee was flexed and the ACL, PCL, and meniscus were removed. There was an exposed interference screw on the medial femoral condyle. A screw removal tray was used to remove the screw. This completed the removal of hardware. A drill was sent down the center of the femoral canal followed by an intramedullary erik. Off that erik a distal femoral cutting block was placed. 9 mm was resected off the distal femur at 5 of valgus. A posterior referencing AP sizing guide was then placed on the distal femur. The femur measured to be a size 6. 2 drill holes were placed in 3 of external rotation. A 4-in-1 cutting block was then impacted into place. Anterior, posterior, and chamfer cuts were then made. The proximal tibia was then exposed. An external tibial alignment guide was placed. A tibial cut guide was then anchored in place and the proximal tibia was then resected. The posterior aspect of the knee was then opened up and any additional meniscus fragments and osteophytes were removed. The tibia measured to be a size E. The tibial plate was then placed in the appropriate rotation and the tibia was drilled and punched. Trial components were then placed. I used a size 13 medial congruent polyethylene insert. The knee was brought through a full range of motion and felt to be stable. The peg holes for the femoral component were then drilled. The patella was then everted and 9 mm was resected off the posterior aspect of the patella. The patella measured to be a size 31 oval. 3 peg holes were then drilled. A trial patella was placed. The knee was once again brought through a full range of motion and felt to be stable. Trial components were then removed. The surrounding soft tissues were injected with 100 cc of an orthopedic pain control cocktail. All components were then cemented into place with Biomet cement. The final polyethylene insert was then snapped into place. Once cement was dry the tourniquet was deflated. Hemostasis was obtained. A dilute betadyne lavage was then done for 3 minutes. The joint was then irrigated with normal saline solution. The subvastus arthrotomy was then closed with #1 Vicryl suture. The skin was closed with 2-0 Vicryl, 3-0V lock suture, and kamari. A soft compressive dressing was placed. She was then transferred to a hospital bed and taken to the postanesthesia care unit in stable condition. She tolerated the procedure well. Vahid Leal PA-C, was present for the entire procedure. He was critical for patient positioning, prepping, draping, retraction exposure, wound closure and application of sterile dressing. I attest to the content of the Intraoperative Record and any orders documented therein. Any exceptions are noted below.
[2022-06-03] MEDS ORDERED: ONDANSETRON INJ 2 MG/ML 2 ML VIAL ONE (11:16)
[2022-06-03] MEDS: fentaNYL citrate 100 MCG/2 ML VIAL IV PRN ×4 (11:31→11:48)
[2022-06-03] MEDS ORDERED: HYDROmorphone INJ 2 MG/ML SYR/VIAL ONE (11:53)
[2022-06-03] MEDS: HYDROmorphone INJ 2 MG/ML SYR/VIAL IV PRN ×4 (11:56→12:35)
[2022-06-03] MEDS ORDERED: LORazepam 0.5 MG in SYRINGE 0.25 ML IV STA (12:23)
--- NOTE | 2022-06-03 12:39 | XRay Report ---
XR knee LT 1 or 2V routine CLINICAL HISTORY: Surgical Post Op TECHNIQUE: 2 views of the left knee were obtained. Comparison: Comparison is made to bilateral knee radiographs 02/19/2022 FINDINGS: Patient is status post total knee arthroplasty with expected postsurgical changes including soft tiss ue swelling and subcutaneous emphysema. No periarticular lucency or hardware fracture is seen. IMPRESSION: Expected postoperative appearance status post placement of total knee arthroplasty. ACT 112: Negative or not required by law. Electronically signed by: Martinez Coffey M.D. 06/03/2022 12:38 PM
[2022-06-03] MEDS ORDERED: NALOXONE HCL 0.4 MG/1 ML VIAL/CARP IV PRN (13:34)
[2022-06-03] MEDS ORDERED: METOCLOPRAMIDE HCL INJ 5 MG/ML 2 ML VIAL IV PRN (13:34)
[2022-06-03] MEDS ORDERED: bisacodyL 10 MG SUPP PR PRN (13:34)
[2022-06-03] MEDS ORDERED: MAGNESIUM HYDROXIDE SUSP 30 ML UDC PO PRN (13:34)
[2022-06-03] MEDS ORDERED: HYDROmorphone INJ 0.5 MG/0.5 ML SYR IV PRN (13:34)
[2022-06-03] MEDS ORDERED: ALBUTEROL HFA 8 GM INHALER INH PRN (13:34)
[2022-06-03] MEDS ORDERED: PHARMACY GLYCEMIC MGMT CONSULT PRN (13:34)
[2022-06-03] MEDS ORDERED: FLUTICASONE PROPIONATE NA SPR 16 GM BTL NAE PRN (13:34)
[2022-06-03] MEDS ORDERED: hydrOXYzine HCl 25 MG TAB PO PRN (13:34)
--- NOTE | 2022-06-03 13:59 | XRay Report ---
TWO VIEWS LEFT KNEE CLINICAL HISTORY: Postoperative examination. FINDINGS: AP and crosstable lateral portable views of the left knee are compared to study performed e dariel the same day 06/03/2022 and 02/19/2022. A left knee arthroplasty is in near anatomic alignment. There has been undersurface remodeling of the patella. An additional cortical lag screws present in t he proximal tibial metadiaphysis. No acute fracture is seen. There are expected postoperative changes around the knee including skin clips, soft tissue edema, and subcutaneous gas. IMPRESSION: Expected postoperative changes status post left knee arthroplasty. No acute fracture is s een. ACT 112: Negative or not required by law. Electronically signed by: Luis Arvizu M.D. 06/03/2022 1:57 PM
[2022-06-03] MEDS: SODIUM CHLORIDE 0.9% 1000ML 1,000 ML IV SCH (14:03)
--- NOTE | 2022-06-03 14:08 | Anesthesiology Progress Note ---
Date of Service June 03, 2022 Anesthesia Post Procedure Vital Signs Vital Signs: Temp Pulse Pulse Resp BP Pulse Ox O2 Del Method 06/03/22 14:00 36.6 C 62 16 117/72 91 Nasal Cannula 06/03/22 13:30 36.5 C 64 16 111/72 91 Nasal Cannula 06/03/22 13:20 73 17 121/78 95 Nasal Cannula 06/03/22 13:10 36.4 C L 66 16 105/65 95 Nasal Cannula 06/03/22 12:50 64 17 113/64 97 Nasal Cannula 06/03/22 13:00 88 22 129/66 99 Nasal Cannula 06/03/22 12:40 58 L 15 133/61 100 Room Air 06/03/22 12:30 36.5 C 62 15 133/61 100 Room Air 06/03/22 12:20 63 13 114/67 100 Room Air 06/03/22 12:10 62 19 99/61 L 100 Room Air 06/03/22 12:00 61 17 110/68 96 Room Air 06/03/22 11:50 62 20 104/60 100 Oxymask 06/03/22 11:40 60 18 117/60 100 Oxymask 06/03/22 11:30 57 L 15 104/64 99 Oxymask 06/03/22 11:24 36.6 C 70 15 99/59 L 95 Oxymask 06/03/22 07:39 36.8 C 72 20 146/90 H 97 Room Air O2 Flow Rate 06/03/22 14:00 2 06/03/22 13:30 2 06/03/22 13:20 2 06/03/22 13:10 2 06/03/22 12:50 3 06/03/22 13:00 3 06/03/22 12:40 06/03/22 12:30 06/03/22 12:20 06/03/22 12:10 06/03/22 12:00 06/03/22 11:50 4 06/03/22 11:40 9 06/03/22 11:30 9 06/03/22 11:24 9 06/03/22 07:39 Pain Intensity Left Knee: Pain Intensity: 5 Transfer of Care Handoff Completed per policy Notes Mental Status: alert / awake / arousable and participated in evaluation Patient Amnestic to Procedure: Yes Nausea / Vomiting: adequately controlled Pain: adequately controlled Airway Patency, RR, SpO2: stable & adequate BP & HR: stable & adequate Hydration State: stable & adequate Neuraxial Anesthesia: was administered and sensory block resolved Anesthetic Complications: no major complications apparent and Pt Satisfied with anesthetic care Notes: pt with increased pain postop in posterior knee, left thigh, and left ankle. says she feels tense.mgave small dose ativan and determined with pt that she be admitted for closer monitoring and continued pain control.
[2022-06-03] MEDS ORDERED: GLUCOSE 40% GEL 15 GM TUBE PO PRN (14:30)
[2022-06-03] MEDS ORDERED: GLUCAGON FOR INJ 1 MG VIAL IM PRN (14:30)
[2022-06-03] MEDS ORDERED: CARBOHYDRATES FOR HYPOGLYCEMIA PO PRN (14:30)
[2022-06-03] MEDS ORDERED: LANTUS PER UNIT CHARGE SQ ONE (14:30)
[2022-06-03] MEDS ORDERED: DEXTROSE 50% 50 ML SYRINGE IV PRN (14:30)
[2022-06-03] MEDS ORDERED: GLUCOSE 10 TAB/TUBE PO PRN (14:30)
--- NOTE | 2022-06-03 14:32 | Pharmacy Report ---
Pharmacy Glycemic Short Note 2 - Date of Service June 03, 2022 - Glycemic Short BSG Results (Last 24 hours): 06/03/22 06/03/22 06/03/22 07:41 07:49 11:26 Glucose 160 H POC Glucose 161 H 183 H 06/03/22 13:53 Glucose POC Glucose 204 H OUTPATIENT ANTIDIABETIC REGIMEN: * Metformin 1000 mg PO BIDM * Jardiance 25 mg PO daily HbA1c: 7.4% (02/19/22) ASSESSMENT: * AMINTA is a 52 year old female POD #0 s/p left total knee arthroplasty * Received 8 mg PO dexamethasone + intra-articular ortho-mix containing dexamethasone in OR * Preop BSG of 161 and postop BSG of 204 mg/dL * Reasonably controlled T2DM as an outpatient with orals only (slightly above goal A1c) * Will give weight-based Lantus and aggressive Novolog today to cover steroids PLAN FOR INPATIENT GLYCEMIC CONTROL: * Hold outpatient oral diabetes medications * Basal insulin * Lantus 35 units SQ x 1 (~0.3-0.4 unit/kg) * Bolus insulin * NovoLog per scale ACHS or Q6hrs while NPO * Goal Range: Low 110 mg/dL - High 140 mg/dL * Correction Factor: 15 mg/dL/unit * Nutritional / Prandial insulin per carb ratio of 1 unit per 5 grams CHO consumed
[2022-06-03] MEDS: KETOROLAC 30 MG/ML VIAL IV SCH ×2 (15:27→20:24)
[2022-06-03] MEDS: ACETAMINOPHEN 500 MG TAB PO SCH ×2 (15:28→21:44)
[2022-06-03] MEDS: INSULIN ASPART PER UNIT SC SCH ×3 (15:28→21:43)
[2022-06-03] MEDS: oxyCODONE HCL IR 5 MG TAB (IMMEDIATE RELEASE) PO PRN ×2 (17:55→23:41)
[2022-06-03] MEDS: DOCUSATE SODIUM 100 MG CAP PO SCH (20:24)
[2022-06-03] MEDS: ceFAZolin 2000MG 2,000 MG/15 ML SYR IV SCH (20:24)
[2022-06-03] MEDS ORDERED: SENNA 8.6 MG TAB PO SCH (21:00)
[2022-06-03] MEDS: ASPIRIN 81 MG ECTAB PO SCH (21:44)
[2022-06-04] MEDS: KETOROLAC 30 MG/ML VIAL IV SCH ×3 (02:10→14:03)
[2022-06-04] MEDS: SODIUM CHLORIDE 0.9% 1000ML 1,000 ML IV SCH (03:10)
[2022-06-04] MEDS: ceFAZolin 2000MG 2,000 MG/15 ML SYR IV SCH (05:25)
[2022-06-04] MEDS: ACETAMINOPHEN 500 MG TAB PO SCH ×2 (05:25→14:03)
--- NOTE | 2022-06-04 06:48 | Orthopedic Progress Note ---
Date of Service June 04, 2022 Assessment & Plan (1) Status post left knee replacement: Overall she is doing fairly well. She is not having much pain in the left knee. She will be seen by physical therapy today for ambulation and range of motion exercises. She is on aspirin for DVT prophylaxis. She can be discharged home later today. She will follow-up with orthopedics in 2 weeks. Ceasar Draper was seen and examined at bedside this morning. Overall she is doing fairly well. She is not having as much pain in the left knee. She has been up and ambulating to the bathroom. She has no complaints.. Review of Systems All systems reviewed & are unremarkable except as noted in HPI & below. Physical Exam On physical examination of the left knee, the dressing is clean and dry. Her leg is out in full extension. She has active dorsiflexion plantarflexion of her left ankle.. Results & Data Results & Data Laboratory Results . Diagnostic Findings Postoperative x-rays of the left knee show the prosthesis to be in anatomic alignment without any evidence of fracture, desiccation, or loosening. PG Care Time/CCT Total # of Minutes Spent Total Time Spent with Patient: Total time spent is greater than 50% in coordination of care (as documented) at patient's floor/unit and/or counseling patient: Coding Level of Care Code 41305 Post Operative Follow-Up Diagnoses Status post left knee replacement Z96.652
--- NOTE | 2022-06-04 06:49 | Discharge Summary ---
Date of Service June 04, 2022 Admission HPI (Per Admitting) Bonny is a pleasant 52-year-old female who has been dealing with chronic worsening left knee pain. She had 2 ACL reconstructions in the . She has gone on to develop severe osteoarthritis of her left knee. After failing years of conservative treatment, she has elected to proceed with a left total knee arthroplasty. . Admission Exam (Per Admitting) On physical examination of the left knee, she does have a varus deformity. She has range of motion of 10 to 110 degrees. She has no gross instability. She has pain of the distal femoral condyles.. Principal Diagnosis Same as "Discharge Diagnosis" noted below under Discharge Instructions. Discharge Exam On physical examination of the left knee, the dressing is clean and dry. Her leg is out in full extension. She has active dorsiflexion plantarflexion of her left ankle.. Discharge Data Procedures Performed Operation Date: 03/21/22 12:00 <No data on this case meets the specified criteria> Operation Date: 06/03/22 09:20 Actual Procedures p Left Total Knee Arthroplasty(Left) - Vahid Diaz DO Ordered Studies 06/03/22 05:00 US - OR guided needle placemen Routine Hospital Course (1) Status post left knee replacement: On June 03, 2022 Bonny arrived at [facility] and underwent a left knee replacement without complication. She had a spinal anesthetic. Postoperatively she was started on aspirin for DVT prophylaxis and was in our outpatient joint protocol. Unfortunately she was having a lot of pain postoperatively. The nerve block did not seem to be effective. We decided to keep her overnight for pain control and ambulation. On postop day #1 she was doing fairly well. Her vital signs are stable. She was seen by physical therapy for ambulation and range of motion exercises. She was then discharged home. She will follow-up with orthopedics in 2 weeks. PG Care Time/CCT Total # of Minutes Spent Total Time Spent with Patient: Total time spent is greater than 50% in coordination of care (as documented) at patient's floor/unit and/or counseling patient: Discharge Plan Discharge Items Patient Disposition: Home - Home Health Services Reason For Visit: Left Knee Degenerative Joint Disease Discharge Diagnosis: Left knee replacement Activity: Per Instructions section Non-emergency contact: Surgeon Call non-emergency contact if: your wound has increased redness and your wound has increased drainage Follow-up/Referrals: [facility] [Outside] (as per surgeon's office ) Eulalio Ferraro DO [Primary Care Provider] - Diet: Regular Addtl Attending Provider Instructions: Activity and Therapy Recommendations: * If you are using [facility] then therapy will be provided at your home until they feel you have accomplished all of your goals. * If you are using [facility] then Physical Therapy will be provided until they feel you are ready to start Outpatient Physical Therapy. * If you are not using home therapy then Outpatient Physical Therapy should start about 3-5 days from your day of surgery. Therapy will last about 6-10 weeks * It is important not to put a pillow under your knee when you are relaxing or sleeping. It is just as important to make sure you are getting your knee perfectly straight as it is to regain your knee bend. * You were shown a series of exercises in the hospital. Do these exercises three times each day including the exercises you were shown in physical therapy. * Get up and walk several times each day. For the first four weeks, try not to stand or walk for more than one hour at a time. If you do stand or walk for more than one hour, you will not hurt anything, but your leg will likely swell. * As you feel comfortable, you may change from the walker or crutches to a cane and then to independent walking. Medications: * Narcotic You will likely be sent home from the hospital with a prescription for the narcotic pain medication that worked best throughout your stay. * Aspirin Most patients will be required to take Aspirin 81mg twice a day for 6 weeks after surgery. This is obtained [id number] and a prescription is not necessary. * Other medications may be prescribed for specific circumstances. If you have any questions, please call the office at . * Resume previous home medications unless otherwise instructed TEDs/Elastic Stockings: The white elastic stockings help limit swelling and prevent blood clots from forming in your legs.~ The more you wear them, the more they work. Wear them for six weeks. Dressing Care: The dressing can be changed after physical therapy on postop day #1. Daily dry dressing changes for a few days, especially if the incision is still draining some. If the incision is not draining then you may leave the kamari open to air. If there is a little bit of drainage or if the kamari are getting stuck on your clothing then cover the incision with a dry dressing. The kamari will be removed at your 2 week follow-up appointment. Showering: You may shower 5 days from the day of surgery as long as the incision is no longer draining. You may shower with the kamari exposed. Let soapy water run over the kamari and pat them dry. Do not scrub or soak the incision. Things To Watch For: * Drainage from the incision site that occurs more than one week after your surgery. * Increased redness at the incision site. * Fever above 102 degrees Fahrenheit. * Unusual chest pain or shortness of breath. * Call [facility] at with any of the above problems Follow-Up Visit: Follow-up with Dr. Diaz's PA (aVhid Leal) 2-3 weeks after your day of surgery. He will remove your kamari and answer any questions. If you have any additional questions or concerns, Dr Diaz is usually in the office at the same time and will be available An appointment was probably scheduled when you signed-up for surgery in the office. If you have any questions call Office Instructions: More detailed instructions as well as Frequently Asked Questions were provided in a folder by our office when you signed-up for surgery. Please review these instructions when you get home. If you have any further questions or concerns, please feel free to call the office at [phone] Pending Studies at Discharge: No Stand-Alone Forms: My [facility] Medications and DC Order Prescriptions: New oxycodone-acetaminophen 5-325 mg tablet 1 tab PO Q6H PRN (Reason: pain) Qty: 30 0RF aspirin [Adult Aspirin Regimen] 81 mg tablet,delayed release (DR/EC) 81 mg PO BID Qty: 84 0RF celecoxib [Celebrex] 200 mg capsule 200 mg PO BID Qty: 28 0RF Rx Instructions: Take 1 pill twice a day for 2 weeks after surgery Continued (DME) Ultra-Light Rollator Misc See Rx Instructions .Route Qty: 1 0RF Rx Instructions: As directed atorvastatin 40 mg tablet 40 mg PO QAM fluticasone propionate 50 mcg/actuation spray,suspension 1 spray intranasal DAILY PRN (Reason: Congestion) Rx Instructions: administer into each nostril (DME) 3-in-1 Commode Misc See Rx Instructions .MEDSUPPLY Qty: 1 0RF Rx Instructions: As directed metoprolol succinate 50 mg tablet extended release 24 hr 50 mg PO QAM chlorthalidone 25 mg tablet 25 mg PO QAM acetaminophen [Tylenol Extra Strength] 500 mg Tablet 1,000 mg PO Q4 PRN (Reason: Pain) Rx Instructions: TAKE PER PACKAGE DIRECTIONS amlodipine 10 mg tablet 10 mg PO QAM metformin 1,000 mg tablet 1,000 mg PO BID albuterol sulfate 90 mcg/actuation HFA aerosol inhaler 2 puff Inhalation DIRECTED PRN (Reason: Shortness Of Breath) Label Comments: TAKES FOR COLD SYMPTOMS cholecalciferol (vitamin D3) [Vitamin D3] 2,000 unit Capsule 2,000 units PO QAM Jardiance 25 mg tablet 25 mg PO QAM hydroxyzine HCl 25 mg tablet 25 - 50 mg PO TID PRN (Reason: Anxiety) sertraline [Zoloft] 50 mg tablet 50 mg PO QAM turmeric root extract 500 mg Capsule 1,500 mg PO HS ferrous sulfate [Iron (ferrous sulfate)] 325 mg (65 mg iron) Tablet 325 mg PO Q OTHER DAY Discharge Orders: Discharge Order (Routine); Ordered 06/04/22 Ordered By: Vahid Diaz Admission Data Admit Date/Time: 06/03/22 13:30 Attending Provider: Vahid Diaz Admit Provider: Vahid Diaz Primary Care Provider: Eulalio Ferraro
[2022-06-04] MEDS: DOCUSATE SODIUM 100 MG CAP PO SCH (08:33)
[2022-06-04] MEDS: INSULIN ASPART PER UNIT SC SCH ×2 (08:43→12:49)
[2022-06-04] MEDS ORDERED: ATORVASTATIN 40 MG TAB PO SCH (09:00)
[2022-06-04] MEDS ORDERED: SERTRALINE HCL 50 MG TABLET PO SCH (09:00)
[2022-06-04] MEDS ORDERED: CHLORTHALIDONE 25 MG TAB PO SCH (09:00)
[2022-06-04] MEDS ORDERED: MULTIVITAMIN TAB PO SCH (09:00)
[2022-06-04] MEDS ORDERED: amLODIPine BESYLATE 5 MG TAB PO SCH (09:00)
[2022-06-04] MEDS ORDERED: METOPROLOL SUCC 50MG EXT REL TAB PO SCH (09:00)
[2022-06-04] MEDS: ASPIRIN 81 MG ECTAB PO SCH (09:12)
[2022-06-04] MEDS: oxyCODONE HCL IR 5 MG TAB (IMMEDIATE RELEASE) PO PRN (09:22)
== END 2022-06-04 15:34 | disposition home health service (06) ==
LOC: 3E 07:14 → ASU 07:14

== ENCOUNTER 2022-10-13 08:15 | Observation (INO) ==
--- NOTE | 2022-09-10 16:12 | PAT Medication Instructions ---
Medication Instructions Date of Service September 10, 2022 Home Medications Medication Instructions Recorded 3-in-1 Commode #1 ea 02/19/22 walker (Ultra-Light Rollator misc) #1 ea 05/27/22 aspirin 81 mg tablet,delayed 81 mg PO BID #84 tabs 06/03/22 release (Adult Aspirin Regimen) celecoxib 200 mg capsule (Celebrex) 200 mg PO BID #28 caps 06/03/22 oxycodone-acetaminophen 5 mg-325 1 tab PO Q6H PRN pain #30 tabs 06/03/22 mg tablet oxycodone-acetaminophen 5 mg-325 1 tab PO Q6H PRN pain #30 tabs 06/20/22 mg tablet (Percocet) oxycodone-acetaminophen 5 mg-325 1 tab PO Q6H PRN pain #30 tabs 06/27/22 mg tablet (Percocet) oxycodone-acetaminophen 5 mg-325 1 tab PO Q6H PRN pain #30 tabs 07/15/22 mg tablet (Percocet) acetaminophen 500 mg tablet (Tylenol Extra Strength) 1,000 mg PO Q4 PRN Pain albuterol sulfate 90 mcg/actuation aerosol inhaler 2 puff inhalation DIRECTED PRN Shortness Of Breath amlodipine 10 mg tablet 10 mg PO QAM chlorthalidone 25 mg tablet 25 mg PO QAM cholecalciferol (vitamin D3) 50 mcg (2,000 unit) capsule (Vitamin D3) 2,000 units PO QAM metformin 1,000 mg tablet 1,000 mg PO BID metoprolol succinate 50 mg tablet,extended release 24 hr 50 mg PO QAM atorvastatin 40 mg tablet 40 mg PO QAM empagliflozin 25 mg tablet (Jardiance) 25 mg PO QAM hydroxyzine HCl 25 mg tablet 25 - 50 mg PO TID PRN Anxiety sertraline 50 mg tablet (Zoloft) 150 mg PO QAM fluticasone propionate 50 mcg/actuation nasal spray,suspension 1 spray intranasal DAILY PRN Congestion ferrous sulfate 325 mg (65 mg iron) tablet (Iron (ferrous sulfate)) 325 mg PO Q OTHER DAY turmeric root extract 500 mg capsule 1,500 mg PO HS aspirin 81 mg tablet,delayed release (Adult Aspirin Regimen) 81 mg PO BID celecoxib 200 mg capsule (Celebrex) 200 mg PO BID oxycodone-acetaminophen 5 mg-325 mg tablet 1 tab PO Q6H PRN pain oxycodone-acetaminophen 5 mg-325 mg tablet (Percocet) 1 tab PO Q6H PRN pain oxycodone-acetaminophen 5 mg-325 mg tablet (Percocet) 1 tab PO Q6H PRN pain oxycodone-acetaminophen 5 mg-325 mg tablet (Percocet) 1 tab PO Q6H PRN pain lisdexamfetamine 60 mg capsule (Vyvanse) 60 mg PO QAM magnesium 30 mg tablet 30 mg PO QAM zinc 1 tab PO QAM ASK your surgeon for instructions celecoxib 200 mg capsule (Celebrex) 200 mg PO BID ASK your prescriber and surgeon aspirin 81 mg tablet,delayed release (Adult Aspirin Regimen) 81 mg PO BID STOP taking 2 weeks before surgery (or as soon as possible if surgery is within 2 weeks) turmeric root extract 500 mg capsule 1,500 mg PO HS DO NOT take the morning of surgery chlorthalidone 25 mg tablet 25 mg PO QAM cholecalciferol (vitamin D3) 50 mcg (2,000 unit) capsule (Vitamin D3) 2,000 units PO QAM metformin 1,000 mg tablet 1,000 mg PO BID ferrous sulfate 325 mg (65 mg iron) tablet (Iron (ferrous sulfate)) 325 mg PO Q OTHER DAY lisdexamfetamine 60 mg capsule (Vyvanse) 60 mg PO QAM magnesium 30 mg tablet 30 mg PO QAM zinc 1 tab PO QAM Take morning of surgery With a small sip of water, OTHERWISE NOTHING TO EAT OR DRINK AFTER MIDNIGHT: acetaminophen 500 mg tablet (Tylenol Extra Strength) 1,000 mg PO Q4 PRN Pain (if needed) albuterol sulfate 90 mcg/actuation aerosol inhaler 2 puff inhalation DIRECTED PRN Shortness Of Breath (use if needed; please bring rescue inhaler with you to hospital day of surgery if possible) amlodipine 10 mg tablet 10 mg PO QAM metoprolol succinate 50 mg tablet,extended release 24 hr 50 mg PO QAM atorvastatin 40 mg tablet 40 mg PO QAM sertraline 50 mg tablet (Zoloft) 150 mg PO QAM fluticasone propionate 50 mcg/actuation nasal spray,suspension 1 spray intranasal DAILY PRN Congestion (if needed) oxycodone-acetaminophen 5 mg-325 mg tablet 1 tab PO Q6H PRN pain (if needed) Take evening before surgery acetaminophen 500 mg tablet (Tylenol Extra Strength) 1,000 mg PO Q4 PRN Pain (if needed) albuterol sulfate 90 mcg/actuation aerosol inhaler 2 puff inhalation DIRECTED PRN Shortness Of Breath (if needed) metformin 1,000 mg tablet 1,000 mg PO BID hydroxyzine HCl 25 mg tablet 25 - 50 mg PO TID PRN Anxiety (if needed) fluticasone propionate 50 mcg/actuation nasal spray,suspension 1 spray intranasal DAILY PRN Congestion (if needed) oxycodone-acetaminophen 5 mg-325 mg tablet 1 tab PO Q6H PRN pain (if needed) STOP taking 3 days before surgery empagliflozin 25 mg tablet (Jardiance) 25 mg PO QAM Other Notes If you have any questions please call us at [phone] or [phone] or [phone] or [phone]
--- NOTE | 2022-09-30 12:27 | Anesthesiology Consultation ---
Date of Service September 30, 2022 Assessment & Plan (1) Encounter for pre-operative examination: - Check BSG AM DOS - S/P Left TKA (06/03/22): SAB + PNB at [facility]. Per post-op anesthesia progress note, "pt with increased pain postop in posterior knee, left thigh, and left ankle. says she feels tense.mgave small dose ativan and determined with pt that she be admitted for closer monitoring and continued pain control." - Outpatient joint assessment: Pt currently scheduled for inpatient pathway. If surgeon requests review for outpatient joint pathway, patient is not recommended candidate for outpatient joint program from anesthesia standpoint (d/t comorbidities including morbid obesity and MARTIN with no current device- recalled in addition to difficult post-op pain management with 05/2022 left TKA requesting post-op admission for further management). - COVID screening: No known COVID-19 positive contacts. Pt seen by PCP 09/10- complaints of cough, sore throat, fever, chills, headache, weakness, loss of appetite, congestion/drainage for a few days. Testing came back positive for influenza A 09/10 (report scanned into [employer]- Covid testing from same day was negative). Multiple attempts to reach patient for update unsuccessful. DOS greater than one month after flu diagnosis. Per Hailey at surgeon's office, patient did not have any URI/Covid-related complaints at followup ortho office visit 09/23/22 as they screen patients before visit. Will evaluate patient AM DOS to determine if anything further needed preoperatively from anesthesia perspective. Chart Review Chart Review: Acceptable Risk for Surgery (pending evaluation AM DOS) and Patient NOT seen in Pre Admission Testing History Surgery Operation Date: 10/13/22 10:40 Proposed Procedures p Right Total Knee Arthroplasty - Vahid Diaz, DO Height/Weight Height: 5 ft 3.25 in Weight: 104.326 kg Allergies Allergy/AdvReac Type Severity Reaction Status Date / Time hydrocodone [From Vicodin] Allergy Intermediate HEADACHE Verified 09/10/22 12:17 WITH ITCHING lisinopril Allergy Intermediate Chest Verified 09/10/22 12:17 tightness and headache tuberculin, purified protein Allergy Intermediate SWELLING Verified 09/10/22 12:17 deriva AT SITE tetanus immune globulin AdvReac Intermediate RED, SORE Verified 09/10/22 12:17 AND HARD AT SITE PER PT Medications Home Medications Medication Instructions Recorded Confirmed Last Taken acetaminophen 500 mg tablet 1,000 mg PO Q4 PRN Pain 11/29/18 09/10/22 06/02/22 23:50 (Tylenol Extra Strength) albuterol sulfate 90 mcg/actuation 2 puff inhalation DIRECTED PRN 11/29/18 09/10/22 Unknown aerosol inhaler Shortness Of Breath amlodipine 10 mg tablet 10 mg PO QAM 11/29/18 09/10/22 06/03/22 06:30 chlorthalidone 25 mg tablet 25 mg PO QAM 11/29/18 09/10/22 06/02/22 20:30 cholecalciferol (vitamin D3) 50 2,000 units PO QAM 11/29/18 09/10/22 06/02/22 06:30 mcg (2,000 unit) capsule (Vitamin D3) metformin 1,000 mg tablet 1,000 mg PO BID 11/29/18 09/10/22 06/02/22 20:00 metoprolol succinate 50 mg 50 mg PO QAM 11/29/18 09/10/22 06/03/22 06:30 tablet,extended release 24 hr atorvastatin 40 mg tablet 40 mg PO QAM 02/21/20 09/10/22 06/03/22 06:30 empagliflozin 25 mg tablet 25 mg PO QAM 05/19/20 09/10/22 06/02/22 06:30 (Jardiance) hydroxyzine HCl 25 mg tablet 25 - 50 mg PO TID PRN Anxiety 05/19/20 09/10/22 Unknown sertraline 50 mg tablet (Zoloft) 150 mg PO QAM 05/19/20 09/10/22 06/03/22 06:30 fluticasone propionate 50 1 spray intranasal DAILY PRN 03/06/21 09/10/22 Unknown mcg/actuation nasal Congestion spray,suspension ferrous sulfate 325 mg (65 mg 325 mg PO Q OTHER DAY 02/02/22 09/10/22 06/02/22 06:30 iron) tablet (Iron (ferrous sulfate)) 3-in-1 Commode #1 ea 02/19/22 02/19/22 Unknown turmeric root extract 500 mg 1,500 mg PO HS 08/19/22 12/07/22 08/23/22 06:30 capsule walker (Ultra-Light Rollator misc) #1 ea 05/27/22 Unknown aspirin 81 mg tablet,delayed 81 mg PO BID #84 tabs 06/03/22 09/10/22 Unknown release (Adult Aspirin Regimen) celecoxib 200 mg capsule (Celebrex) 200 mg PO BID #28 caps 06/03/22 09/10/22 Unknown oxycodone-acetaminophen 5 mg-325 1 tab PO Q6H PRN pain #30 tabs 06/03/22 09/10/22 Unknown mg tablet oxycodone-acetaminophen 5 mg-325 1 tab PO Q6H PRN pain #30 tabs 06/20/22 09/10/22 Unknown mg tablet (Percocet) oxycodone-acetaminophen 5 mg-325 1 tab PO Q6H PRN pain #30 tabs 06/27/22 09/10/22 Unknown mg tablet (Percocet) oxycodone-acetaminophen 5 mg-325 1 tab PO Q6H PRN pain #30 tabs 07/15/22 09/10/22 Unknown mg tablet (Percocet) lisdexamfetamine 60 mg capsule 60 mg PO QAM 09/10/22 09/10/22 Unknown (Vyvanse) magnesium 30 mg tablet 30 mg PO QAM 09/10/22 09/10/22 Unknown zinc 1 tab PO QAM 09/10/22 09/10/22 Unknown Past Medical History Medical History (Updated 09/30/22 @ 12:27 by Nayely Boswell) ADD (attention deficit disorder) No meds currently Anxiety and depression Diabetes mellitus, type 2 History of COVID-19 02/02/22 ([facility]), FEVER/SWEATING/BODY ACHES/HEADACHES/EYE PAIN Hyperlipidemia Hypertension Migraine headache Post traumatic stress disorder Restless leg syndrome Sleep apnea No device currently (recalled) Temporomandibular joint disorder No current/recent locking Past Family History Family History Family/Other Diabetes Osteoporosis Coronary heart disease Colorectal cancer Hypertension Mother Diabetes Osteoporosis Coronary heart disease Hypertension Daughter Anxiety Depression Eating disorder Sister Anxiety Depression Hypertension Other Dyslipidemia No family history of adverse response to anesthesia Pulmonary embolism Denies family history of Ovarian cancer Breast cancer Past Surgical History Surgical History H/O arthroscopy of left knee History of dilation and curettage History of tooth extraction X 2 S/P ACL repair LEFT X 2 S/P wisdom tooth extraction Social History Smoking Status: Never smoker Do You Dip or Chew Tobacco: No Hx Alcohol Use: No Hx Substance Use: No substance use type: does not use Lab Results Anesthesia Preop Results Results Anesthesia Widget: WBC 9.04 K/ul (4.8-10.8) 09/23/22 Hgb 14.0 g/dl (12.0-16.0) 09/23/22 Hct 42.1 % (34.1-44.9) 09/23/22 Plt 313 K/uL (130-400) 09/23/22 Na 139 mmol/L (136-145) 09/23/22 K 3.5 mmol/L (3.5-5.1) 09/23/22 Cl 105 mmol/L (98-107) 09/23/22 CO2 23 mmol/L (21-32) 09/23/22 BUN 20 mg/dl (6-23) 09/23/22 Creat 0.81 mg/dl (0.6-1.2) 09/23/22 Glucose Level 141 mg/dl (70-99(Fasting)) H 09/23/22 PT 10.1 Seconds (9.0-12.0) 09/23/22 PTT 23.9 Seconds (21.0-31.0) 09/23/22 INR 0.9 (0.9-1.1) 09/23/22 HA1c 7.2 % (4.5-5.6) H 09/23/22 Blood Type A Positive 09/23/22 Antibody Screen NEGATIVE 09/23/22 Testing Electrocardiogram Date: 02/19/22 Findings: + SB @ (58bpm ) Chest X-Ray Date: 02/19/22 Findings: + NAD Echocardiogram Date: 05/20/20 EF: 60-65% LV Function: normal RWMA: + none Other Findings: + LVH (mild/concentric ) Valvular Disease: + no significant valvular disease
[~2022-10-13 08:15] MED LIST changes: +BUPIVACAINE 0.25% 30 ML VIAL ONE; +BUPIVACAINE 0.5 % 5 MG/1 ML PF 10ML VIAL ONE; +DEXAMETHASONE SOD INJ 4 MG/ML VIAL ONE; +EPINEPHrine INJ 1 MG/ML AMP ONE; -GABAPENTIN 300 MG CAP PO SCH; +GABAPENTIN 900 MG DOSE PO SCH; -Ketorolac (*for OR use only*) 30 MG, dexAMETHasone 4 MG, KETAMINE HCL (**OR use only) 1... INFIL SCH; -MEPIVACAINE HCL 1.5% 30 ML VIAL ONE; +ORTHO JOINT MIX INFIL SCH; -ROPIVACAINE 0.5% 5 MG/ML 30 ML VIAL ONE
[2022-10-13] MEDS ORDERED: MIDAZOLAM HCL 1 MG/ML 2ML VIAL ONE ×2 (10:26→11:36)
--- NOTE | 2022-10-13 10:31 | History & Physical Bridge Note ---
Date of Service October 13, 2022 History & Physical Bridge Note I have examined the patient, reviewed the History & Physical and in the interval since the performance of the History & Physical I have noted the following changes of clinical significance: no changes noted
[2022-10-13] MEDS ORDERED: ORTHO JOINT ANESTHETIC ONE (10:54)
[2022-10-13] MEDS ORDERED: PROPOFOL IV EMULSION 10 MG/ML 20 ML VIAL IV ONE (11:35)
[2022-10-13] MEDS ORDERED: LIDOCAINE 2% MPF LOCAL 5 ML VIAL INFIL ONE (11:35)
--- NOTE | 2022-10-13 12:41 | Operative Report ---
PG Post Operative Report Pre & Post Diagnosis Operation Date: 10/13/22 10:40 Pre-Op Diagnosis: Degenerative Joint Disease, Right Knee Post-Op Diagnosis: Degenerative Joint Disease, Right Knee I identified the patient and participated in the time-out.: Yes Procedure Operation Date: 10/13/22 10:40 Actual Procedures p Right Total Knee Arthroplasty, Cemented.(Right) - Vahid Diaz DO Surgeon Vahid Diaz DO [employer] Vahid Leal PA-C Estimated Blood Loss 30 Findings Consistent with Post-Op Diagnosis Specimens Right femoral and tibial bone Description of Procedure Implants used: I used a Joe Persona total knee arthroplasty system with a size 6 standard femur, D tibia, 31 oval patella, and a size 16 medial congruent polyethylene bearing. All components were cemented in place with Biomet cement. Bonny arrived [facility] for the above procedure. She was seen in the preoperative holding area and the operative extremity was identified and signed. She was given a preoperative antibiotic, TXA, a spinal anesthetic and an adductor nerve block. She was taken back to the operating room and laid on the table in supine position. She was given basic sedation. The operative knee was then prepped and draped in sterile fashion. A timeout was done, and the patient and the operative extremity was properly identified. A midline incision was made directly over the patella. Dissection was taken down to the extensor mechanism. A midvastus arthrotomy was used. The medial retinaculum was released and the fat pad was mostly excised. The knee was flexed and the ACL, PCL, and meniscus were removed. A drill was sent down the center of the femoral canal followed by an intramedullary erik. Off that erik a distal femoral cutting block was placed. 9 mm was resected off the distal femur at 5 of valgus. A posterior referencing AP sizing guide was then placed on the distal femur. The femur measured to be a size 6. 2 drill holes were placed in 3 of external rotation. A 4-in-1 cutting block was then impacted into place. Anterior, posterior, and chamfer cuts were then made. The proximal tibia was then exposed. An external tibial alignment guide was placed. A tibial cut guide was then anchored in place and the proximal tibia was then resected. The posterior aspect of the knee was then opened up and any additional meniscus fragments and osteophytes were removed. The tibia measured to be a size D. The tibial plate was then placed in the appropriate rotation and the tibia was drilled and punched. Trial components were then placed. I used a size 16 medial congruent polyethylene insert. The knee was brought through a full range of motion and felt to be stable. The peg holes for the femoral component were then drilled. The patella was then everted and 9 mm was resected off the posterior aspect of the patella. The patella measured to be a size 31 oval. 3 peg holes were then drilled. A trial patella was placed. The knee was once again brought through a full range of motion and felt to be stable. Trial components were then removed. The surrounding soft tissues were injected with 100 cc of an orthopedic pain control cocktail. All components were then cemented into place with Biomet cement. The final polyethylene insert was then snapped into place. Once cement was dry the tourniquet was deflated. Hemostasis was obtained. A dilute betadyne lavage was then done for 3 minutes. The joint was then irrigated with normal saline solution. The subvastus arthrotomy was then closed with #1 Vicryl suture. The skin was closed with 2-0 Vicryl, 3-0V lock suture, and kamari. A soft compressive dressing was placed. She was then transferred to a hospital bed and taken to the postanesthesia care unit in stable condition. She tolerated the procedure well. Vahid Leal PA-C, was present for the entire procedure. He was critical for patient positioning, prepping, draping, retraction exposure, wound closure and application of sterile dressing. I attest to the content of the Intraoperative Record and any orders documented therein. Any exceptions are noted below.
[2022-10-13] MEDS ORDERED: PHENYLEPHRINE HCL 10 MG/ML VIAL ONE (12:50)
--- NOTE | 2022-10-13 13:17 | Anesthesiology Progress Note ---
Date of Service October 13, 2022 Anesthesia Post Procedure Vital Signs Vital Signs: Temp Pulse Pulse Resp BP BP Pulse Ox 10/13/22 13:10 63 19 106/68 96 10/13/22 13:02 36.5 C 66 16 103/54 L 98 10/13/22 08:41 10/13/22 08:41 37.3 C 72 20 107/74 96 O2 Del Method O2 Flow Rate 10/13/22 13:10 Room Air 10/13/22 13:02 Oxymask 5 10/13/22 08:41 Room Air 10/13/22 08:41 Room Air Transfer of Care Handoff Completed per policy Notes Mental Status: alert / awake / arousable and participated in evaluation Patient Amnestic to Procedure: Yes Nausea / Vomiting: adequately controlled Pain: adequately controlled Airway Patency, RR, SpO2: stable & adequate BP & HR: stable & adequate Hydration State: stable & adequate Neuraxial Anesthesia: was administered and sensory block is resolving Anesthetic Complications: no major complications apparent and Pt Satisfied with anesthetic care
[2022-10-13] MEDS ORDERED: ONDANSETRON INJ 2 MG/ML 2 ML VIAL IV PRN ×2 (13:20→14:54)
[2022-10-13] MEDS ORDERED: ATROPINE SULFATE 0.1 MG/ML 10ML SYR IV PRN (13:20)
[2022-10-13] MEDS ORDERED: ePHEDrine sulfate 50 MG/ML AMP IV PRN (13:20)
[2022-10-13] MEDS ORDERED: fentaNYL citrate 100 MCG/2 ML VIAL ONE (13:25)
[2022-10-13] MEDS: fentaNYL citrate 100 MCG/2 ML VIAL IV PRN ×4 (13:26→13:41)
[2022-10-13] MEDS ORDERED: HYDROmorphone INJ 1 MG/ML SYRINGE ONE (13:49)
[2022-10-13] MEDS: HYDROmorphone INJ 1 MG/ML SYRINGE IV PRN ×4 (13:50→14:19)
[2022-10-13] MEDS ORDERED: METOCLOPRAMIDE HCL INJ 5 MG/ML 2 ML VIAL IV PRN (14:54)
[2022-10-13] MEDS ORDERED: hydrOXYzine HCl 25 MG TAB PO PRN (14:54)
[2022-10-13] MEDS ORDERED: bisacodyL 10 MG SUPP PR PRN (14:54)
[2022-10-13] MEDS ORDERED: MAGNESIUM HYDROXIDE SUSP 30 ML UDC PO PRN (14:54)
[2022-10-13] MEDS ORDERED: FLUTICASONE PROPIONATE NA SPR 16 GM BTL PRN (14:54)
[2022-10-13] MEDS ORDERED: NALOXONE HCL 0.4 MG/1 ML VIAL/CARP IV PRN (14:54)
[2022-10-13] MEDS ORDERED: HYDROmorphone INJ 0.5 MG/0.5 ML SYR IV PRN (14:54)
[2022-10-13] MEDS ORDERED: PHARMACY GLYCEMIC MGMT CONSULT PRN (14:54)
--- NOTE | 2022-10-13 14:59 | XRay Report ---
RIGHT KNEE 2 VIEWS History: Right total knee arthroplasty. Degenerative arthritis. Postop. FINDINGS: The patient is status post a right total knee arthroplasty. The hardware is intact. No frac ture or dislocation. Skin kamari are in place. IMPRESSION: Right total knee arthroplasty. No evidence for hardware complication. ACT 112: Negative or not required by law. Electronically signed by: Enrique Rodriguez M.D. 10/13/2022 2:57 PM
[2022-10-13] MEDS: SODIUM CHLORIDE 0.9% 1000ML 1,000 ML IV SCH (15:09)
[2022-10-13] MEDS ORDERED: DEXTROSE 50% 50 ML SYRINGE IV PRN (15:15)
[2022-10-13] MEDS ORDERED: LANTUS PER UNIT CHARGE SQ ONE (15:15)
[2022-10-13] MEDS ORDERED: CARBOHYDRATES FOR HYPOGLYCEMIA PO PRN (15:15)
[2022-10-13] MEDS ORDERED: GLUCOSE 40% GEL 15 GM TUBE PO PRN (15:15)
[2022-10-13] MEDS ORDERED: GLUCAGON FOR INJ 1 MG VIAL IM PRN (15:15)
[2022-10-13] MEDS ORDERED: GLUCOSE 10 TAB/TUBE PO PRN (15:15)
[2022-10-13] MEDS: ACETAMINOPHEN 500 MG TAB PO SCH ×2 (15:58→21:50)
[2022-10-13] MEDS: KETOROLAC 30 MG/ML VIAL IV SCH ×2 (15:58→20:39)
[2022-10-13] MEDS: INSULIN ASPART PER UNIT SC SCH ×2 (17:30→21:47)
[2022-10-13] MEDS: oxyCODONE HCL IR 5 MG TAB (IMMEDIATE RELEASE) PO PRN (18:14)
[2022-10-13] MEDS: DOCUSATE SODIUM 100 MG CAP PO SCH (20:39)
[2022-10-13] MEDS: ceFAZolin 2000MG 2,000 MG/15 ML SYR IV SCH (20:40)
[2022-10-13] MEDS: ASPIRIN 81 MG ECTAB PO SCH (20:41)
[2022-10-13] MEDS ORDERED: SENNA 8.6 MG TAB PO SCH (21:00)
[2022-10-14] MEDS: oxyCODONE HCL IR 5 MG TAB (IMMEDIATE RELEASE) PO PRN ×4 (01:38→14:08)
[2022-10-14] MEDS: SODIUM CHLORIDE 0.9% 1000ML 1,000 ML IV SCH (01:40)
[2022-10-14] MEDS: KETOROLAC 30 MG/ML VIAL IV SCH ×2 (03:19→08:26)
[2022-10-14] MEDS: ceFAZolin 2000MG 2,000 MG/15 ML SYR IV SCH (03:20)
[2022-10-14] MEDS: ACETAMINOPHEN 500 MG TAB PO SCH ×2 (05:45→12:29)
--- NOTE | 2022-10-14 07:07 | Orthopedic Progress Note ---
Date of Service October 14, 2022 Assessment & Plan (1) Status post right knee replacement: Overall she is doing well. She is not having much pain in the right knee. She will be seen by physical therapy today for ambulation and range of motion exercises. She is on aspirin for DVT prophylaxis. She can be discharged home later today. She will follow-up with orthopedics in 2 weeks. Subjective Didi was seen and examined at bedside this morning. Overall she is doing very well. She is not having much pain in the right knee. She has been up and ambulating to the bathroom. She has no complaints.. Review of Systems All systems reviewed & are unremarkable except as noted in HPI & below. Physical Exam On physical examination of the right knee, the dressing is clean and dry. Her leg is out full extension. She has active dorsiflexion plantarflexion of her right ankle.. Results & Data Results & Data Laboratory Results . Diagnostic Findings Postoperative x-rays of the right knee show the prosthesis to be in anatomic alignment without any evidence of fracture, desiccation, or loosening.. PG Care Time/CCT Total # of Minutes Spent Total Time Spent with Patient: Total time spent is greater than 50% in coordination of care (as documented) at patient's floor/unit and/or counseling patient: Coding Level of Care Code 95190 Post Operative Follow-Up Diagnoses Status post right knee replacement Z96.651
--- NOTE | 2022-10-14 07:08 | Discharge Summary ---
Date of Service October 14, 2022 Principal Diagnosis Same as "Discharge Diagnosis" noted below under Discharge Instructions. Discharge Exam On physical examination of the right knee, the dressing is clean and dry. Her leg is out full extension. She has active dorsiflexion plantarflexion of her right ankle.. Discharge Data Procedures Performed Operation Date: 10/13/22 10:40 Actual Procedures p Right Total Knee Arthroplasty, Cemented.(Right) - Vahid Diaz DO Ordered Studies 10/13/22 05:00 US - OR guided needle placemen Routine Hospital Course (1) Status post right knee replacement: On October 13, 2022 Bonny arrived at [facility] and underwent a right knee replacement without complication. She had a spinal anesthetic. Postoperatively she was started on aspirin for DVT prophylaxis and transferred to the general orthopedic floors. Her hospital course was uneventful. On postop day #1, her vital signs were stable and her pain was well controlled. She was able to participate well with physical therapy doing ambulation and range of motion exercises. She was then discharged home. She will follow-up with orthopedics in 2 weeks. PG Care Time/CCT Total # of Minutes Spent Total Time Spent with Patient: Total time spent is greater than 50% in coordination of care (as documented) at patient's floor/unit and/or counseling patient: Discharge Plan Discharge Items Patient Disposition: Home - Home Health Services Reason For Visit: Degenerative Joint Disease Right Knee Discharge Diagnosis: Status post right knee replacement Activity: Per Instructions section Non-emergency contact: Surgeon Call non-emergency contact if: your wound has increased redness and your wound has increased drainage Follow-up/Referrals: Eulalio Ferraro DO [Primary Care Provider] - Diet: Regular Addtl Attending Provider Instructions: Activity and Therapy Recommendations: * If you are using [facility] then therapy will be provided at your home until they feel you have accomplished all of your goals. * If you are using [facility] then Physical Therapy will be provided until they feel you are ready to start Outpatient Physical Therapy. * If you are not using home therapy then Outpatient Physical Therapy should start about 3-5 days from your day of surgery. Therapy will last about 6-10 weeks * It is important not to put a pillow under your knee when you are relaxing or sleeping. It is just as important to make sure you are getting your knee perfectly straight as it is to regain your knee bend. * You were shown a series of exercises in the hospital. Do these exercises three times each day including the exercises you were shown in physical therapy. * Get up and walk several times each day. For the first four weeks, try not to stand or walk for more than one hour at a time. If you do stand or walk for more than one hour, you will not hurt anything, but your leg will likely swell. * As you feel comfortable, you may change from the walker or crutches to a cane and then to independent walking. Medications: * Narcotic You will likely be sent home from the hospital with a prescription for the narcotic pain medication that worked best throughout your stay. * Aspirin Most patients will be required to take Aspirin 81mg twice a day for 6 weeks after surgery. This is obtained [id number] and a prescription is not necessary. * Other medications may be prescribed for specific circumstances. If you have any questions, please call the office at . * Resume previous home medications unless otherwise instructed TEDs/Elastic Stockings: The white elastic stockings help limit swelling and prevent blood clots from forming in your legs.~ The more you wear them, the more they work. Wear them for six weeks. Dressing Care: The dressing can be changed after physical therapy on postop day #1. Daily dry dressing changes for a few days, especially if the incision is still draining some. If the incision is not draining then you may leave the kamari open to air. If there is a little bit of drainage or if the kamari are getting stuck on your clothing then cover the incision with a dry dressing. The kamari will be removed at your 2 week follow-up appointment. Showering: You may shower 5 days from the day of surgery as long as the incision is no longer draining. You may shower with the kamari exposed. Let soapy water run over the kamari and pat them dry. Do not scrub or soak the incision. Things To Watch For: * Drainage from the incision site that occurs more than one week after your surgery. * Increased redness at the incision site. * Fever above 102 degrees Fahrenheit. * Unusual chest pain or shortness of breath. * Call [facility] at with any of the above problems Follow-Up Visit: Follow-up with Dr. Diaz's PA (Vahid Leal) 2-3 weeks after your day of surgery. He will remove your kamari and answer any questions. If you have any additional questions or concerns, Dr Diaz is usually in the office at the same time and will be available An appointment was probably scheduled when you signed-up for surgery in the office. If you have any questions call Office Instructions: More detailed instructions as well as Frequently Asked Questions were provided in a folder by our office when you signed-up for surgery. Please review these instructions when you get home. If you have any further questions or concerns, please feel free to call the office at [phone] Pending Studies at Discharge: No Stand-Alone Forms: My [facility] Medications and DC Order Prescriptions: Continued (DME) Ultra-Light Rollator Misc See Rx Instructions .Route Qty: 1 0RF Rx Instructions: As directed oxycodone-acetaminophen [Percocet] 5-325 mg tablet 1 tab PO Q6H PRN (Reason: pain) Qty: 30 0RF oxycodone-acetaminophen [Percocet] 5-325 mg tablet 1 tab PO Q6H PRN (Reason: pain) Qty: 30 0RF atorvastatin 40 mg tablet 40 mg PO QAM fluticasone propionate 50 mcg/actuation spray,suspension 1 spray intranasal DAILY PRN (Reason: Congestion) Rx Instructions: administer into each nostril (DME) 3-in-1 Commode Misc See Rx Instructions .MEDSUPPLY Qty: 1 0RF Rx Instructions: As directed metoprolol succinate 50 mg tablet extended release 24 hr 50 mg PO QAM chlorthalidone 25 mg tablet 25 mg PO QAM acetaminophen [Tylenol Extra Strength] 500 mg Tablet 1,000 mg PO Q4 PRN (Reason: Pain) Rx Instructions: TAKE PER PACKAGE DIRECTIONS amlodipine 10 mg tablet 10 mg PO QAM metformin 1,000 mg tablet 1,000 mg PO BID albuterol sulfate 90 mcg/actuation HFA aerosol inhaler 2 puff Inhalation DIRECTED PRN (Reason: Shortness Of Breath) Label Comments: TAKES FOR COLD SYMPTOMS cholecalciferol (vitamin D3) [Vitamin D3] 2,000 unit Capsule 2,000 units PO QAM Jardiance 25 mg tablet 25 mg PO QAM hydroxyzine HCl 25 mg tablet 25 - 50 mg PO TID PRN (Reason: Anxiety) sertraline [Zoloft] 50 mg tablet 150 mg PO QAM turmeric root extract 500 mg Capsule 1,500 mg PO HS oxycodone-acetaminophen 5-325 mg tablet 1 tab PO Q6H PRN (Reason: pain) Qty: 30 0RF ferrous sulfate [Iron (ferrous sulfate)] 325 mg (65 mg iron) Tablet 325 mg PO Q OTHER DAY magnesium 30 mg Tablet 30 mg PO QAM zinc Tablet,Chewable 1 tab PO QAM Vyvanse 60 mg Capsule 60 mg PO QAM celecoxib [Celebrex] 200 mg capsule 200 mg PO BID Qty: 28 0RF Rx Instructions: Take 1 pill twice a day for 2 weeks after surgery aspirin [Adult Aspirin Regimen] 81 mg tablet,delayed release (DR/EC) 81 mg PO BID 42 Days Qty: 84 0RF oxycodone-acetaminophen [Percocet] 5-325 mg tablet 1 tab PO Q6H PRN (Reason: pain) Qty: 30 0RF Discharge Orders: Discharge Order (Routine); Ordered 10/14/22 Ordered By: Vahid Diaz Admission Data Admit Date/Time: 10/13/22 14:07 Attending Provider: Vahid Diaz Admit Provider: Vahid Diaz Primary Care Provider: Eulalio Ferraro
[2022-10-14] MEDS: DOCUSATE SODIUM 100 MG CAP PO SCH (08:25)
[2022-10-14] MEDS: ASPIRIN 81 MG ECTAB PO SCH (08:25)
[2022-10-14] MEDS: INSULIN ASPART PER UNIT SC SCH ×2 (08:36→12:28)
[2022-10-14] MEDS ORDERED: SERTRALINE HCL 50 MG TABLET PO SCH (09:00)
[2022-10-14] MEDS ORDERED: ATORVASTATIN 40 MG TAB PO SCH (09:00)
[2022-10-14] MEDS ORDERED: PATIENT'S OWN CONTROLLED MED 1 PO SCH (09:00)
[2022-10-14] MEDS ORDERED: CHLORTHALIDONE 25 MG TAB PO SCH (09:00)
[2022-10-14] MEDS ORDERED: NON-FORMULARY MEDICATION (Magnesium 30 mg Tablet) PO SCH (09:00)
[2022-10-14] MEDS ORDERED: LISDEXAMFETAMINE DIMESYLATE PO SCH ×2 (09:00)
[2022-10-14] MEDS ORDERED: amLODIPine BESYLATE 5 MG TAB PO SCH (09:00)
[2022-10-14] MEDS ORDERED: MULTIVITAMIN TAB PO SCH (09:00)
[2022-10-14] MEDS ORDERED: METOPROLOL SUCC 50MG EXT REL TAB PO SCH (09:00)
== END 2022-10-14 14:18 | disposition home health service (06) ==
LOC: ASU 08:15 → 3E 08:15